=== PATIENT | female | born 1930 | race Caucasian/White ===

== ENCOUNTER 2018-09-24 17:00 | Inpatient (IN) ==
[2018-09-24] MEDS ORDERED: SODIUM CHLORIDE 0.9% 500 ML IV SCH (18:00)
[2018-09-24 18:07] LABS: Basophils # (auto) 0.08 K/uL (0-0.2); Basophils % (auto) 1.2 %; Eosinophils # (auto) 0.31 K/uL (0-0.5); Eosinophils % (auto) 4.6 %; Hematocrit (blood only) 45.3 % (37-47); Hemoglobin 14.7 g/dL (12.0-16.0); Immature Granulocytes # (auto) 0.01 K/uL (0.00-0.02); Immature Granulocytes % (auto) 0.1 %; Lymphocytes # (auto) 0.96 K/uL (1.2-3.4); Lymphocytes % (auto) 14.3 %; Mean Corpuscular Hgb Conc 32.5 g/dL (32-36); Mean Corpuscular Volume 95.6 fL (80-100); Monocytes # (auto) 0.55 K/uL (0.11-0.59); Monocytes % (auto) 8.2 %; Neutrophils % (auto) 71.6 %; Platelet Count 151 K/uL (130-400); RDW Coefficient of Variation 14.6 % (11.5-14.5); RDW Standard Deviation 51.3 fL (36.4-46.3); Red Blood Count 4.74 M/uL (4.2-5.4); White Blood Count 6.71 K/uL (4.8-10.8)
--- NOTE | 2018-09-24 18:12 | CT Scan Report ---
CT head/brain wo con CLINICAL HISTORY: 87 years-old Female presenting with weakness. TECHNIQUE: Multidetector CT imaging of the head was performed without the use of intravenous contrast . IV contrast: None. One or more dose lowering techniques were used consistent with the principles of ALARA (as low as reasonably achievable), including automatic exposure control, mA or kV adjustment t o individual patient size, and/or use of iterative reconstruction. COMPARISON: 02/24/2016. CT DOSE (mGy.cm): The estimated cumulative dose is 537.48 mGy.cm. FINDINGS: Electric Welder Helper topogram: The patient is edentulous. Ventricles and sulci normal in size. No hemorrhage. Periventricular and subcortical white matter hypo attenuation, nonspecific but likely indicative of chronic small vessel ischemic change. No acute terr itorial infarct. No mass effect or midline shift. No extra-axial fluid collection. Paranasal sinuses and mastoid air cells clear. Calvarium intact. Bilateral [place] lenses are absent. IMPRESSION: 1. Chronic small vessel ischemic change. No acute intracranial abnormality. Electronically signed by: Sanjiv Floyd M.D. 09/24/2018 6:11 PM
[2018-09-24 18:25] LABS: INR 1.8 (0.9-1.1); Partial Thromboplastin Ratio 1.1; Partial Thromboplastin Time 29.6 Seconds (21.0-31.0); Prothrombin Time 17.4 Seconds (9.0-12.0)
--- NOTE | 2018-09-24 18:34 | Emergency Department Note ---
Entered by Tita Zavaleta acting as a scribe for History of Present Illness General Chief complaint: Confusion Stated complaint: AMS Time Seen by Provider: 09/24/18 17:39 Source: family Mode of arrival: EMS History of Present Illness Provider complaint: altered mental status Onset (ago): hour(s) 8 Location: head Pain Consistency: + other (persistent) Quality: + other (altered mental status) Associated symptoms: + other (Associated symptoms: sleepiness, increased swelling of legs. Denies: vomiting, diarrea, cough) The patient is an 87 year old female who presents to the Emergency Room with complaints of persistent altered mental status beginning 8 hours ago. Her daughter reports the patient was at her baseline yesterday. The daughter states the patient woke up and ate breakfast as usual, and then sat in a chair and fell asleep for most of the day, which is unusal for her. She notes the patient was difficult to rouse. The daughter reports the patient has chronic pain and generally takes medication 4x a day, but today said she had no pain and did not take her usual medications. She denies vomiting, diarrhea, or cough. The daughter notes the patient has increased swelling of both legs over the past few days. She saw her PCP yesterday who believed this swelling was due to the patient keeping her legs on the ground recently in order to be close to a radiator. The daughter notes the patient said she was given iced tea by the daughter and other family members today, which did not happen. 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 She has a history of multiple mini-strokes and many UTIs. Home Medications Home Medications Medication Instructions Recorded Confirmed Type acetaminophen [Tylenol 8 Hour] 650 mg PO Q8H PRN 09/24/18 09/24/18 History atorvastatin 20 mg PO DAILY 09/24/18 09/24/18 History calcium carbonate-vitamin D3 1 tab PO DAILY 09/24/18 09/24/18 History [Calcium 500 + D] cyclosporine [Restasis] 1 drp OPB Q12H 09/24/18 09/24/18 History docusate sodium 100 mg PO DAILY 09/24/18 09/24/18 History furosemide 40 mg PO DAILY 09/24/18 09/24/18 History hydrocodone-acetaminophen 1 tab PO Q4H PRN 09/24/18 09/24/18 History lisinopril 20 mg PO DAILY 09/24/18 09/24/18 History multivitamin 1 tab PO DAILY 09/24/18 09/24/18 History nitrofurantoin macrocrystal 50 mg PO HS 09/24/18 09/24/18 History [Macrodantin] omeprazole 20 mg PO BID 09/24/18 09/24/18 History polyethylene glycol 3350 [Miralax] 17 g PO DAILY 09/24/18 09/24/18 History vit C,K-Rw-ttwem-lutein-zeaxan 1 tab PO DAILY 09/24/18 09/24/18 History [PreserVision AREDS-2] warfarin 0 mg PO UD 09/24/18 09/24/18 History Allergies Allergy/AdvReac Type Severity Reaction Status Date / Time iodine Allergy Unknown BETADINE Verified 09/24/18 18:17 Sulfa (Sulfonamide Allergy Unknown "SULFA Verified 09/24/18 18:17 Antibiotics) DRUGS" Past Med/Surg History Medical History DVT (deep venous thrombosis) (Chronic) Pulmonary embolism (Chronic) Hypertension (Chronic) Hyperlipidemia (Chronic) Osteoarthritis (Chronic) Spinal compression fracture (Chronic) Dementia (Chronic) Surgical History History of hysterectomy (Resolved) History of bilateral hip replacements (Resolved) History of appendectomy (Chronic) Hx of tonsillectomy (Chronic) Social History Feels Safe at Home: Yes Smoking Status: Never smoker Review of Systems See HPI for pertinent positives & negatives. and A total of 10 systems reviewed and were otherwise negative Physical Exam Vital Signs Vital Signs - 24 hr 09/24/18 17:12 09/24/18 18:45 Temperature 36.9 C Temperature Source Oral Sepsis Recent Fever Within 48 Hours No Sepsis New/Unexplained Change in Mental Status No Sepsis Action Taken by Nursing No Action Required Pulse Rate 83 Pulse Rate [Finger] 83 74 Respiratory Rate 21 24 Blood Pressure 184/79 H Blood Pressure [Right Arm] 184/79 H 177/95 H Blood Pressure Mean 114 Blood Pressure Mean [Right Arm] 114 122 Pulse Oximetry 94 94 Oxygen Delivery Method Room Air Room Air GENERAL: Patient is in no acute distress. HEENT: No acute trauma, normocephalic atraumatic, mucous membranes moist, no nasal congestion, no scleral icterus. NECK: No stridor, no adenopathy, no meningismus, trachea is midline. LUNGS: Clear to auscultation bilaterally, no wheeze, no rhonchi, breath sounds equal. HEART: 2/6 systolic murmur, regular rate and rhythm. ABDOMEN: Soft, nontender, bowel sounds positive, no hernias, no peritonitis. EXTREMITIES: No cyanosis, full range of motion of all the joints without pain or difficulty, no signs for acute trauma. Mild bilateral pedal edema. NEUROLOGIC: Oriented x 3, no acute motor or sensory deficits, no focal weakness. No speech slur or facial droop. No cerebellar dysfunction or pronator drift. SKIN: No rash, no jaundice, no diaphoresis. Course 1739: Past medical records reviewed. The patient was evaluated in room A2, and a complete history and physical examination were performed. 1935: Upon reevaluation, the patient is resting. I discussed test results with the patient and her family. They verbalized agreement with the treatment plan. The patient will be admitted for further evaluation. 193: I reviewed the patient's case with Alden [facility]. He will evaluate the patient for further management. Consultations Consultation #1: I reviewed the patient's case with Alden Lundberg [facility]. He will evaluate the patient for further management. Time: 19:38 Administered Medications Discontinued Medications Sodium Chloride (Nss) 500 mls @ 999 mls/hr IV .Q31M NEIDA Stop: 09/24/18 18:30 Last Infusion: 09/24/18 19:26 Dose: 0 mls/hr Admin: 09/24/18 18:45 Dose: 999 mls/hr Medical Decision Making Differential Diagnosis Etiologies considered include dehydration, UTI, intracranial bleeding, stroke, electrolyte imbalance, anemia, pneumonia. Medical Records Attestation: I reviewed the patient's medical records. Home Medications Current Medication List: was personally reviewed by me Laboratory Data Attestation: I reviewed the patient's lab results. Result diagrams: 09/24/18 18:00 09/24/18 18:50 Lab Results 09/24/18 09/24/18 09/24/18 Range/Units 18:00 18:00 18:00 WBC 6.71 (4.8-10.8) K/uL RBC 4.74 (4.2-5.4) M/uL Hgb 14.7 (12.0-16.0) g/dL Hct 45.3 (37-47) % MCV 95.6 (80-100) fL MCH 31.0 (25-34) pg MCHC 32.5 (32-36) g/dL RDW Std Deviation 51.3 H (36.4-46.3) fL RDW Coeff of Sarah 14.6 H (11.5-14.5) % Plt Count 151 (130-400) K/uL MPV 9.0 (7.4-10.4) fL Immature Gran % (Auto) 0.1 % Neut % (Auto) 71.6 % Lymph % (Auto) 14.3 % [place] % (Auto) 8.2 % Eos % (Auto) 4.6 % Baso % (Auto) 1.2 % Immature Gran # (Auto) 0.01 (0.00-0.02) K/uL Neut # (Auto) 4.80 (1.4-6.5) K/uL Lymph # (Auto) 0.96 L (1.2-3.4) K/uL [place] # (Auto) 0.55 (0.11-0.59) K/uL Eos # (Auto) 0.31 (0-0.5) K/uL Baso # (Auto) 0.08 (0-0.2) K/uL PT 17.4 H (9.0-12.0) Seconds INR 1.8 H (0.9-1.1) APTT 29.6 (21.0-31.0) Seconds PTT Ratio 1.1 Sodium 140 (136-145) mmol/L Potassium (3.5-5.1) mmol/L Chloride 104 (98-107) mmol/L Carbon Dioxide 33 H (21-32) mmol/L Anion Gap 4.0 (3-11) BUN 16 (7-18) mg/dl Creatinine 0.87 (0.6-1.2) mg/dl Est Cr Clr Drug Dosing 47.0 ml/min Est GFR ( Amer) 68.9 Est GFR (Non-Af Amer) 59.5 BUN/Creatinine Ratio 18.5 (10-20) Glucose 134 H (70-99) mg/dl Calcium 8.6 (8.5-10.1) mg/dl Magnesium (1.8-2.4) mg/dl Total Bilirubin 0.5 (0.2-1) mg/dl AST (15-37) U/L ALT 28 (12-78) U/L Alkaline Phosphatase 115 (45-117) U/L Troponin I 0.069 H* (0-0.045) ng/ml Total Protein 7.4 (6.4-8.2) gm/dl Albumin 3.3 L (3.4-5.0) gm/dl Globulin 4.1 H (2.5-4.0) gm/dl Albumin/Globulin Ratio 0.8 L (0.9-2) TSH 1.140 (0.300-4.500) uIu/ml Urine Color Urine Appearance (Clear) Urine pH (4.5-7.5) Ur Specific [place] (1.000-1.030) Urine Protein (Negative) Urine Glucose (UA) (Negative) Urine Ketones (Negative) Urine Blood (Negative) Urine Nitrite (Negative) Urine Bilirubin (Negative) Urine Urobilinogen (Negative) Ur Leukocyte Esterase (Negative) 09/24/18 09/24/18 Range/Units 18:50 19:08 WBC (4.8-10.8) K/uL RBC (4.2-5.4) M/uL Hgb (12.0-16.0) g/dL Hct (37-47) % MCV (80-100) fL MCH (25-34) pg MCHC (32-36) g/dL RDW Std Deviation (36.4-46.3) fL RDW Coeff of Sarah (11.5-14.5) % Plt Count (130-400) K/uL MPV (7.4-10.4) fL Immature Gran % (Auto) % Neut % (Auto) % Lymph % (Auto) % [place] % (Auto) % Eos % (Auto) % Baso % (Auto) % Immature Gran # (Auto) (0.00-0.02) K/uL Neut # (Auto) (1.4-6.5) K/uL Lymph # (Auto) (1.2-3.4) K/uL [place] # (Auto) (0.11-0.59) K/uL Eos # (Auto) (0-0.5) K/uL Baso # (Auto) (0-0.2) K/uL PT (9.0-12.0) Seconds INR (0.9-1.1) APTT (21.0-31.0) Seconds PTT Ratio Sodium (136-145) mmol/L Potassium 4.2 (3.5-5.1) mmol/L Chloride (98-107) mmol/L Carbon Dioxide (21-32) mmol/L Anion Gap (3-11) BUN (7-18) mg/dl Creatinine (0.6-1.2) mg/dl Est Cr Clr Drug Dosing ml/min Est GFR ( Amer) Est GFR (Non-Af Amer) BUN/Creatinine Ratio (10-20) Glucose (70-99) mg/dl Calcium (8.5-10.1) mg/dl Magnesium 2.3 (1.8-2.4) mg/dl Total Bilirubin (0.2-1) mg/dl AST 18 (15-37) U/L ALT (12-78) U/L Alkaline Phosphatase (45-117) U/L Troponin I (0-0.045) ng/ml Total Protein (6.4-8.2) gm/dl Albumin (3.4-5.0) gm/dl Globulin (2.5-4.0) gm/dl Albumin/Globulin Ratio (0.9-2) TSH (0.300-4.500) uIu/ml Urine Color Yellow Urine Appearance Clear (Clear) Urine pH 6.0 (4.5-7.5) Ur Specific [place] 1.015 (1.000-1.030) Urine Protein Negative (Negative) Urine Glucose (UA) Negative (Negative) Urine Ketones Negative (Negative) Urine Blood Negative (Negative) Urine Nitrite Negative (Negative) Urine Bilirubin Negative (Negative) Urine Urobilinogen Negative (Negative) Ur Leukocyte Esterase Negative (Negative) Imaging Data Radiologist's Impression: Radiology results as stated below per my review and the radiologist's interpretation: XR chest 1V portable CLINICAL HISTORY: 87 years-old Female presenting with weakness. TECHNIQUE: Portable upright AP view of the chest was obtained. COMPARISON: 02/24/2016. FINDINGS: Atherosclerosis of the aortic arch. Cardiac silhouette enlarged. Mitral annular calcification. Pulmonary vascular prominence. Bronchial wall thickening suggested. Coarsened lung markings. Central predominant right upper and left lower at the densities suggested. No large effusion or pneumothorax. Suspected exaggerated thoracic kyphosis. Degenerative changes of the shoulders. Partially visualized IVC filter. IMPRESSION: 1. Cardiomegaly with volume overload/congestive change. 2. Patchy central infiltrates in the right upper and left lower lungs may represent developing pulmonary edema or an infectious or inflammatory infiltrate. Electronically signed by: Sanjiv Floyd M.D. 09/24/2018 6:[address] head/brain wo con CLINICAL HISTORY: 87 years-old Female presenting with weakness. TECHNIQUE: Multidetector CT imaging of the head was performed without the use of intravenous contrast. IV contrast: None. One or more dose lowering techniques were used consistent with the principles of ALARA (as low as reasonably achievable), including automatic exposure control, mA or kV adjustment to individual patient size, and/or use of iterative reconstruction. COMPARISON: 02/24/2016. CT DOSE (mGy.cm): The estimated cumulative dose is 537.48 mGy.cm. FINDINGS: Electrolog Operator topogram: The patient is edentulous. Ventricles and sulci normal in size. No hemorrhage. Periventricular and subcortical white matter hypoattenuation, nonspecific but likely indicative of chronic small vessel ischemic change. No acute territorial infarct. No mass effect or midline shift. No extra-axial fluid collection. Paranasal sinuses and mastoid air cells clear. Calvarium intact. Bilateral [place] lenses are absent. IMPRESSION: 1. Chronic small vessel ischemic change. No acute intracranial abnormality. Electronically signed by: Sanjiv Floyd M.D. 09/24/2018 6:11 PM ECG Data Attestation: I personally reviewed and interpreted this ECG as follows: Indication: altered mental status Rate (beats per minute): 77 Rhythm: normal sinus Findings: no PVC and no ST elevation Blood Pressure Blood Pressure Findings: Elevated blood pressure Blood Pressure Disposition: Referred to patients primary care provider MDM Narrative There is no leukocytosis or worrisome anemia. No significant electrolyte abnormality, kidney failure or hepatitis. The patient does appear to be in a euthyroid state. EKG shows a sinus rhythm, no acute ischemia. Cardiac enzyme testing x1 does show a troponin elevation, this is concerning for cardiac injury or strain. INR is elevated at 1.8, this is consistent with her Coumadin use. Urinalysis does not show infection. Chest film does shows some parenchymal changes, the radiologist questioned pneumonia, atelectasis or CHF. I think the chest film findings are likely consistent with atelectasis, chronic parenchymal change and a poor inspiration as the patient has not had cough or fever. She did not have findings on exam to suggest CHF. She was not hypoxic. Brain CT shows no acute bleed or mass-effect. On exam, there were no focal neurologic deficits. She did not have a speech slur or facial droop. The patient received IV saline. Given the change in mental status, given the troponin elevation, I do think a hospital stay is warranted. The cause for her entire presentation is not yet completely clear. Further workup is required. Of note, I did not give the patient any oral aspirin as she is already anticoagulated. I spoke to the family and patient, I talked with the case management social worker. The on-call hospitalist was consulted. Impression & Plan Change in mental status, Weakness, Elevated troponin Discharge Plan Visit Data Chief Complaint: Confusion Stated Complaint: AMS ED Provider: Yadiel Cota Discharge Problem: Change in mental status, Weakness, Elevated troponin Patient Disposition: Being Evaluated by Hospitalist Forms Stand Alone Forms: My [facility] Prescriptions Prescriptions: No Action multivitamin Tablet 1 tab PO DAILY RF: 0 furosemide 40 mg Tablet 40 mg PO DAILY RF: 0 nitrofurantoin macrocrystal [Macrodantin] 50 mg Capsule 50 mg PO HS RF: 0 atorvastatin 20 mg Tablet 20 mg PO DAILY RF: 0 polyethylene glycol 3350 [Miralax] 17 gram Powder In Packet 17 g PO DAILY RF: 0 hydrocodone-acetaminophen 5-325 mg Tablet 1 tab PO Q4H PRN (Reason: Pain) RF: 0 lisinopril 20 mg Tablet 20 mg PO DAILY RF: 0 acetaminophen [Tylenol 8 Hour] 650 mg Tablet Extended Release 650 mg PO Q8H PRN (Reason: Fever) RF: 0 warfarin 2 mg Tablet PO UD RF: 0 docusate sodium 100 mg Capsule 100 mg PO DAILY RF: 0 omeprazole 20 mg Capsule,Delayed Release(Dr/Ec) 20 mg PO BID RF: 0 cyclosporine [Restasis] 0.05 % [place] 1 drp OPB Q12H RF: 0 calcium carbonate-vitamin D3 [Calcium 500 + D] 500 mg(1,250mg) -200 unit Tablet 1 tab PO DAILY RF: 0 vit C,K-Re-rdigk-lutein-zeaxan [PreserVision AREDS-2] 742-747-63-1 mg-unit-mg- mg Capsule 1 tab PO DAILY RF: 0 Referrals Referrals: Amadeo Walters DO [Primary Care Provider] - The scribe's documentation has been prepared under my direction and personally reviewed by me in its entirety. I confirm that the note above accurately reflects all work, treatment, procedures, and medical decision making performed by me.
--- NOTE | 2018-09-24 18:38 | XRay Report ---
XR chest 1V portable CLINICAL HISTORY: 87 years-old Female presenting with weakness. TECHNIQUE: Portable upright AP view of the chest was obtained. COMPARISON: 02/24/2016. FINDINGS: Atherosclerosis of the aortic arch. Cardiac silhouette enlarged. Mitral annular calcification. Pulmon [place] vascular prominence. Bronchial wall thickening suggested. Coarsened lung markings. Central predom inant right upper and left lower at the densities suggested. No large effusion or pneumothorax. Suspe cted exaggerated thoracic kyphosis. Degenerative changes of the shoulders. Partially visualized IVC f ilter. IMPRESSION: 1. Cardiomegaly with volume overload/congestive change. 2. Patchy central infiltrates in the right upper and left lower lungs may represent developing pulmo nary edema or an infectious or inflammatory infiltrate. Electronically signed by: Sanjiv Floyd M.D. 09/24/2018 6:37 PM
[2018-09-24 18:46] LABS: Albumin Level 3.3 gm/dl (3.4-5.0); BUN Creatinine Ratio 18.5 (10-20); Calcium 8.6 mg/dl (8.5-10.1); Est GFR (African American) 68.9; Est GFR (Non-African American) 59.5
[2018-09-24 18:50] LABS: Albumin Globulin Ratio 0.8 (0.9-2); Bilirubin,Total 0.5 mg/dl (0.2-1); Globulin 4.1 gm/dl (2.5-4.0); Total Protein 7.4 gm/dl (6.4-8.2); Troponin I 0.069 ng/ml (0-0.045)
[2018-09-24 19:11] LABS: Potassium 4.2 mmol/L (3.5-5.1)
[2018-09-24 19:16] LABS: Magnesium 2.3 mg/dl (1.8-2.4)
[2018-09-24 19:26] LABS: Appearance Urine Clear (Clear); Bilirubin Urine Negative (Negative); Blood Urine Negative (Negative); Color Urine Yellow; Glucose Urine UA Negative (Negative); Ketones Urine Negative (Negative); Leukocyte Esterase Urine Negative (Negative); Nitrite Urine Negative (Negative); Protein Urine Negative (Negative); Specific Gravity Urine 1.015 (1.000-1.030); Urobilinogen Urine Negative (Negative)
[2018-09-24] MEDS ORDERED: HYDROCODONE/ACETAMOPHEN 5/325MG TAB PO STA (20:00)
[2018-09-24 20:26] LABS: Amphetamines+Metham, Urine Neg (Neg); Barbiturates, Urine Neg (Neg); Benzodiazepine, Urine Neg (Neg); Cocaine, Urine Neg (Neg); MDMA (Ecstacy), Urine Neg (Neg); Methadone, Urine Neg (Neg); Opiate, Urine Pos (Neg); Phencyclidine, Urine Neg (Neg)
[2018-09-24 21:00] LABS: Base Excess VBG 4.4 mEq/L; Oxygen Saturation VBG 79.3 %; pH VBG 7.42 (7.36-7.41)
[2018-09-24 21:30] LABS: Troponin I 0.082 ng/ml (0-0.045)
[2018-09-24] MEDS ORDERED: FUROSEMIDE 40 MG/4 ML VIAL IV STA (21:33)
--- NOTE | 2018-09-24 21:34 | History & Physical Report ---
Date of Service September 24, 2018 Assessment & Plan (1) Change in mental status: This is an 87-year-old female with a PMH of HTN, HLD, diastolic heart failure, dementia, recurrent UTI and history of DVT on Coumadin who presents from home with increased drowsiness starting this morning and was found to have decompensated diastolic heart failure. -Became noticably more lethargic this morning, family denies tayla confusion -CT head with chronic small vessel ischemic change. No acute intracranial abnormality -Lethargy likely due to acute decompensated diastolic HF -Afebrile, no leukocytosis, UA without evidence of infection -No new medications (has been taking [place] and gabapentin without issue) -Continue to monitor. Consider further neurological imaging if AMS persists -See attending addendum for further detail (2) Acute on chronic diastolic (congestive) heart failure: BLE edema, weight gain over past few weeks -Echo from Mar 2018 with EF: 61%, concentric LVH, no wall motion abnormality of LV, grade 1 diastolic dysfunction, mild AV stenosis -CXR with cardiomegaly with volume overload/congestive change. Patchy central infiltrates in the right upper and left lower lungs may represent developing pulmonary edema or an infectious or inflammatory infiltrate. -Given 40mg IV Lasix in ED -Low sodium diet, daily weights, strict I&Os (3) Elevated troponin: Troponin elevated to 0.069 initially. Repeat pending -No chest pain or h/o OH -EKG without acute ischemic changes -Likely due to demand ischemia in setting of decompensated heart failure -Continue trending troponin, monitor on telemetry (4) GERD (gastroesophageal reflux disease): Continue PPI (5) Recurrent UTI: No evidence of infection -Continue home nitrofurantoin (6) DVT (deep venous thrombosis): H/o IVC filter placement -Continue home dose coumadin of 2mg daily -INR slightly subtherapeutic at 1.8. Continue to monitor (7) Hypertension: Elevated with SBP in 180s -Continue home lisinopril, IV Lasix -Add additional agents if indicated (8) Hyperlipidemia: Continue statin DVT Ppx: Continue coumadin Code status: DNR per discussion with patient, family PCP: Romeo Dispo: Admitted to telemetry. Patient seen in collaboration with Dr. Ibarra. Please see addendum. History of Present Illness Chief Complaint: lethargy Primary Care Provider: Amadeo Walters DO This is an 87-year-old female with a PMH of HTN, HLD, diastolic heart failure, dementia, recurrent UTI and history of DVT on Coumadin who presents from home with increased drowsiness starting this morning. Patient lives with family members and was noted to be at baseline yesterday. From at 10 AM onward, patient seemed more fatigued than usual and daughter was having difficulty waking her up. Patient fell asleep during lunch, and would open her eyes when prompted but seemed to remain lethargic. Was brought into ED for further evaluation. Patient was seen in clinic yesterday for increased lower extremity swelling. Was told that she had gained 5 pounds since previous appointment. Swelling was attributed to patient keeping legs in dependent position over the past few days to be close to the radiator. Family feels that patient is more fatigued than usual but not confused. Denies fever, chills, lightheadedness, chest pain, palpitations, shortness of breath, nausea, vomiting, abdominal pain, dysuria, constipation, diarrhea or weakness. Patient takes nitrofurantoin for recurrent UTIs and is on Coumadin for history of DVTs. Takes [place] and gabapentin for chronic back pain and did not take dose today at 1400, per daughter. Has history of multiple mini strokes. Allergies Allergy/AdvReac Type Severity Reaction Status Date / Time iodine Allergy Unknown BETADINE Verified 09/24/18 18:17 Sulfa (Sulfonamide Allergy Unknown "SULFA Verified 09/24/18 18:17 Antibiotics) DRUGS" Home Medications Home Medications Medication Instructions Recorded Confirmed Type acetaminophen [Tylenol 8 Hour] 650 mg PO Q8H PRN 09/24/18 09/24/18 History atorvastatin 20 mg PO HS 09/24/18 09/24/18 History calcium carbonate-vitamin D3 1 tab PO DAILY 09/24/18 09/24/18 History [Calcium 500 + D] cyclosporine [Restasis] 1 drp OPB Q12H 09/24/18 09/24/18 History docusate sodium 100 mg PO DAILY 09/24/18 09/24/18 History furosemide 40 mg PO DAILY 09/24/18 09/24/18 History gabapentin 400 mg PO TID 09/24/18 09/24/18 History hydrocodone-acetaminophen 1 tab PO Q4H PRN 09/24/18 09/24/18 History lisinopril 20 mg PO DAILY 09/24/18 09/24/18 History multivitamin 1 tab PO DAILY 09/24/18 09/24/18 History nitrofurantoin macrocrystal 50 mg PO DAILY 09/24/18 09/24/18 History [Macrodantin] omeprazole 20 mg PO BID 09/24/18 09/24/18 History polyethylene glycol 3350 [Miralax] 17 g PO DAILY 09/24/18 09/24/18 History vit C,O-Mf-zrwxv-lutein-zeaxan 1 tab PO DAILY 09/24/18 09/24/18 History [PreserVision AREDS-2] warfarin 2 mg PO DAILY@1600 09/24/18 09/24/18 History Past Med/Surg History Medical History Chronic back pain (Chronic) Recurrent UTI (Chronic) GERD (gastroesophageal reflux disease) (Chronic) Chronic diastolic (congestive) heart failure (Chronic) DVT (deep venous thrombosis) (Resolved) Pulmonary embolism (Resolved) Hypertension (Chronic) Hyperlipidemia (Chronic) Osteoarthritis (Chronic) Spinal compression fracture (Chronic) Dementia (Chronic) Surgical History History of hysterectomy (Resolved) History of bilateral hip replacements (Resolved) History of appendectomy (Chronic) Hx of tonsillectomy (Chronic) Social History Current Living Situation: Family Current Living Situation Comment: LIVES WITH DAUGHTER current occupational status: retired Other Information That Helps Us Care for You: No Feels Safe at Home: Yes Safety Concerns: Feels Safe At This Time Smoking Status: Never smoker Hx Alcohol Use: No Hx Substance Use: No Beliefs That Will Affect Care: None Preferred Language: [place]ib[place]ian Communication Ability: Effective Undercoat Sprayer Required: No Review of Systems All systems reviewed & are unremarkable except as noted in HPI & below Physical Exam 2 Vital Signs (Past 24 Hours): Last Vital Signs Temp 36.9 C 09/24/18 17:12 Pulse 75 09/24/18 20:28 Resp 20 09/24/18 20:28 BP 180/74 H 09/24/18 20:28 Pulse Ox 96 09/24/18 20:28 Physical Exam: General Appearance: WD/WN, no apparent distress, pleasant and cooperative Head: normocephalic, atraumatic Eyes: normal inspection, PERRL, EOMI ENT: hearing grossly normal, pharynx normal (moist mucous membranes) Neck: supple, no JVD, no adenopathy Respiratory/Chest: Bibasilar crackles. No wheezes or rhonci. No respiratory distress or accessory muscle use Cardiovascular: regular rate, rhythm, systolic murmur, normal peripheral pulses , 1-2+ BLE edema Abdomen/GI: normal bowel sounds, soft, non-tender to palpation Extremities/Musculoskelatal: normal inspection, no calf tenderness, normal capillary refill, no pedal edema Neurologic/Psych: alert, normal mood/affect, oriented x 3 Skin: normal color, warm/dry Results & Data Laboratory Results Short CBC 09/24/18 09/24/18 Range/Units 18:00 18:00 WBC 6.71 (4.8-10.8) K/uL Hgb 14.7 (12.0-16.0) g/dL Hct 45.3 (37-47) % Plt Count 151 (130-400) K/uL Troponin I 0.069 H* (0-0.045) ng/ml BMP 09/24/18 09/24/18 18:00 18:50 Sodium 140 Potassium 4.2 Chloride 104 Carbon Dioxide 33 H BUN 16 Creatinine 0.87 Glucose 134 H Calcium 8.6 Cardiac Enzymes 09/24/18 09/24/18 Range/Units 18:00 20:51 Troponin I 0.069 H* 0.082 H* (0-0.045) ng/ml Liver Function 09/24/18 09/24/18 Range/Units 18:00 18:50 Total Bilirubin 0.5 (0.2-1) mg/dl AST 18 (15-37) U/L ALT 28 (12-78) U/L Alkaline Phosphatase 115 (45-117) U/L Albumin 3.3 L (3.4-5.0) gm/dl Urine 09/24/18 Range/Units 19:08 Urine Color Yellow Urine Appearance Clear (Clear) Urine pH 6.0 (4.5-7.5) Ur Specific [place] 1.015 (1.000-1.030) Urine Protein Negative (Negative) Urine Glucose (UA) Negative (Negative) Diagnostic Findings Head CT: IMPRESSION: 1. Chronic small vessel ischemic change. No acute intracranial abnormality. CXR: IMPRESSION: 1. Cardiomegaly with volume overload/congestive change. 2. Patchy central infiltrates in the right upper and left lower lungs may represent developing pulmonary edema or an infectious or inflammatory infiltrate. ECG Rhythm: sinus rhythm Findings: + PAC Code Status & VTE Plan Code Status DNR Supervising Physician Co-Signing Physician Notes IM ATTENDING : Patient seen and examined. History obtained from patient and records. Preceding documentation by Ms. Cheri Conrad PA-C reviewed. FINAL ASSESSMENT AND PLAN as follows : Transient encephalopathy History of vascular dementia as per records Multifactorial : Vicodin/Neurontin medications for chronic LE pain Decompensated heart failure Hypertensive urgency Recurrent PE/DVT on Coumadin status post IVC filter placement INR slightly subtherapeutic LE swelling secondary to CHF Hyperglycemia rule out DM PCU Diuretic Rx Strict I/Os, daily weights, CHF education Initiate Initiate beta-ab TTE, Cardiology consult RE decompensated heart failure Patient/daughter cautioned about taking Gabapentin and Vicodin together. Counseled to take medications at different times and to hold intake for sedation and confusion. Check hemoglobin A1c PT OT eval DVT prophylaxis. IV heparin-Coumadin bridge tx DNR Patient's daughter requesting updates from providers. Mrs. Elida Hess, contact #[phone]. _ (1) Change in mental status Altered mental status type: unspecified Coma depth: Coma timing: Qualified Code(s): R41.82 - Altered mental status, unspecified
[2018-09-24] MEDS: METOPROLOL TARTRATE 25 MG TAB PO SCH (21:51)
[2018-09-24] MEDS ORDERED: WARFARIN SOD 5 MG TAB PO ONE (23:05)
[2018-09-24] MEDS ORDERED: Heparin IV Standard *NO* Bolus STA (23:05)
[2018-09-24] MEDS ORDERED: HYDROCODONE/ACETAMOPHEN 5/325MG TAB PO PRN (23:05)
[2018-09-24] MEDS ORDERED: FUROSEMIDE 40 MG in SYRINGE 0 ML IV SCH (23:45)
[2018-09-24] MEDS: HEPARIN STANDARD DEXTROSE 25,000 UNITS/500 ML IV SCH (23:47)
[2018-09-25] MEDS: RESTASIS~ORDER AWAITING ACTION SCH ×3 (00:05→21:42)
[2018-09-25 06:22] LABS: Estimated Average Glucose 108 mg/dl; Hemoglobin A1C 5.4 % (4.5-5.6)
[2018-09-25 06:34] LABS: Basophils # (auto) 0.04 K/uL (0-0.2); Basophils % (auto) 0.5 %; Eosinophils # (auto) 0.33 K/uL (0-0.5); Eosinophils % (auto) 4.1 %; Hematocrit (blood only) 45.3 % (37-47); Hemoglobin 14.5 g/dL (12.0-16.0); Immature Granulocytes # (auto) 0.01 K/uL (0.00-0.02); Immature Granulocytes % (auto) 0.1 %; Lymphocytes # (auto) 1.24 K/uL (1.2-3.4); Lymphocytes % (auto) 15.4 %; Mean Corpuscular Volume 94.2 fL (80-100); Mean Platelet Volume 9.6 fL (7.4-10.4); Monocytes # (auto) 0.63 K/uL (0.11-0.59); Monocytes % (auto) 7.8 %; Neutrophils % (auto) 72.1 %; Platelet Count 132 K/uL (130-400); RDW Coefficient of Variation 14.4 % (11.5-14.5); RDW Standard Deviation 49.3 fL (36.4-46.3); Red Blood Count 4.81 M/uL (4.2-5.4); White Blood Count 8.05 K/uL (4.8-10.8)
[2018-09-25 07:05] LABS: INR 1.8 (0.9-1.1); Partial Thromboplastin Ratio 2.3; Prothrombin Time 17.2 Seconds (9.0-12.0)
[2018-09-25 07:11] LABS: Partial Thromboplastin Time 59.7 Seconds (21.0-31.0)
[2018-09-25 07:24] LABS: BUN Creatinine Ratio 20.8 (10-20); Calcium 8.5 mg/dl (8.5-10.1); Creatinine Clr Calc Pharmacy 57.3 ml/min; Est GFR (African American) 90.1; Est GFR (Non-African American) 77.7; Potassium 3.5 mmol/L (3.5-5.1); Troponin I 0.072 ng/ml (0-0.045)
[2018-09-25] MEDS ORDERED: FUROSEMIDE 40 MG in SYRINGE 0 ML IV SCH (08:00)
[2018-09-25] MEDS ORDERED: FUROSEMIDE 40 MG/4 ML VIAL IV ONE (08:00)
[2018-09-25] MEDS: LISINOPRIL 20 MG TAB PO SCH ×2 (08:19→11:10)
[2018-09-25] MEDS: PANTOprazole 40 MG TAB PO SCH ×2 (08:19→21:41)
[2018-09-25] MEDS: DOCUSATE SODIUM 100 MG CAP PO SCH (08:19)
[2018-09-25] MEDS: GABAPENTIN 400 MG CAP PO SCH ×2 (08:19→19:14)
[2018-09-25] MEDS: MULTIVITAMIN TAB PO SCH (08:19)
[2018-09-25] MEDS: METOPROLOL TARTRATE 25 MG TAB PO SCH ×2 (10:00→21:41)
[2018-09-25] MEDS ORDERED: LISINOPRIL 20 MG TAB PO STA (10:06)
--- NOTE | 2018-09-25 10:38 | Consultation Report ---
DATE OF CONSULTATION: 09/25/2018 INPATIENT CARDIOLOGY CONSULTATION CONSULTATION REQUESTED BY: Migue Conrad PA-C. REASON FOR CONSULTATION: Acute decompensated diastolic heart failure. HISTORY OF PRESENT ILLNESS: Mrs. Block is a very pleasant yet significantly demented 87-year-old woman who was brought into [facility] Emergency Department on 09/24/2018 by her family members after reporting increasing somnolence and decreased responsiveness. The patient recently followed with her primary care physician after noticing lower extremity edema, increased over the last week or so. It was felt by her primary care that the lower extremity edema was dependent in nature given the fact the patient has recently been sitting in a chair next to a radiator to keep warm. Leg elevation was recommended along with increasing her dose of Lasix; however, on the morning of 09/24/2018, the patient was more somnolent than normal, slept throughout the day and just not seem herself, so her family brought her into the Emergency Department. In the Emergency Department, it was felt that the patient was volume overloaded and that this might have been contributing to her mental status change, so she was started on diuretics and admitted to telemetry. Currently, the patient is without complaint and she specifically denies any chest pain, shortness of breath, palpitations, lightheadedness, dizziness, or syncope. Unfortunately, she is confused and I am not quite sure if this is far from her baseline, but she does not remember the events leading up to hospitalization, she does not know what hospital she is in and the majority of the history was obtained through review of medical records. PAST SURGICAL HISTORY: 1. Total abdominal hysterectomy. 2. Right hip repair. 3. Wrist fracture repair. 4. Multiple eye injections. 5. Colonoscopy. 6. Breast biopsy. 7. Appendectomy. 8. Tonsil and adenoidectomy. 9. Repeat hip replacements. MEDICAL ILLNESSES: 1. Dementia. 2. History of DVT status post IVC filter placement, on long-term anticoagulation. 3. DNR. 4. Diastolic dysfunction with normal LV systolic function. 5. Hypertension. 6. GERD. 7. Osteoporosis. 8. Recurrent urinary tract infections. FAMILY HISTORY: Noncontributory. SOCIAL HISTORY: Denies any alcohol, tobacco or recreational drug use. She lives at home with her daughter. REVIEW OF SYSTEMS: Unobtainable given the patient's current mental status. ALLERGIES: 1. IODINE. 2. SULFA. MEDICATIONS AN OUTPATIENT: 1. Lasix 40 mg daily, which was recently increased from 20 mg daily. 2. Coumadin as directed by the [facility] clinic. 3. Atorvastatin 20 mg daily. 4. Gabapentin 400 mg 3 times a day. 5. Lisinopril 20 mg daily. 6. Prilosec b.i.d. PHYSICAL EXAMINATION: VITALS: Temperature 36.9, pulse 68, respiratory rate 12, blood pressure 170/76. GENERAL: Awake, alert, oriented to self only. No acute distress. HEENT: Normocephalic, atraumatic. Pupils equal, round, react to light and accommodation. Extraocular muscles intact. Anicteric sclerae. Moist mucous membranes. NECK: No JVD, no bruit. CARDIOVASCULAR: Regular. Positive S4. Normal S1 and S2. No S3, no significant murmurs or rubs. PULMONARY: Diffuse rhonchi with scattered bibasilar crackles. No wheezing. ABDOMEN: Bowel sounds x4, soft. No rebound, guarding, tenderness. No organomegaly. EXTREMITIES: No clubbing, cyanosis or edema. +2 pedal pulses bilaterally. SKIN: Warm and dry. IMAGING DATA: A 2D echocardiogram performed March 2018 was read as normal LV chamber size with mild concentric LVH, normal LV systolic function without regional wall motion abnormality, EF 61%. Grade 1 diastolic dysfunction, severe left atrial enlargement, mild aortic stenosis and regurgitation. Chest x-ray upon presentation was officially read as cardiomegaly with volume overload/congestive change, patchy central infiltrate in the right upper and left lower lungs may represent developing pulmonary edema or infectious or inflammatory infiltrate. IMPRESSION: 1. Acute diastolic dysfunction. 2. Change of mental status. 3. Vascular dementia. 4. History of deep venous thrombosis, on chronic anticoagulation. 5. Hypertension. RECOMMENDATIONS: It was my pleasure to see Mrs. Block in consultation today. From a cardiac standpoint, the patient still examined as little volume overloaded, so we will continue with IV diuresis for now; however, I would recommend looking for another possible cause of her mental status change, and in terms of her long-term care, I have asked palliative care team to discuss goals of care with the patient's family. Otherwise, her potassium will be repleted and will follow her volume status clinically.
--- NOTE | 2018-09-25 10:53 | Palliative Care Consultation ---
Date of Consultation September 25, 2018 Assessment & Plan (1) Goals of care, counseling/discussion: -87 year old female patient with PMH vascular dementia, chronic diastolic heart failure, GERD, chronic back pain, PE/DVT, recurrent UTI, and others, presented with altered mental status. Patient lives in an in-law suite connected to her daughter's home. Patient is normally oriented with only mild cognitive impairment/memory issues, is fully independent in her care. A couple days ago, the patient was at the doctor's with increased LE edema, it was thought to be from sitting up in the chair for the majority of the 48 hours prior. Yesterday, patient then seemed to be difficult to wake up by her daughter , was confused, so they came to ED. CXR showed cardiomegaly with congestive change/volume overload. Troponin mildly elevated, but trending down. Echo from March 2018 showed EF 61%, grade 1 diastolic dysfunction, severe left atrial enlargement, mild aortic stenosis and regurgitation. UA negative for UTI. Opiate screening positive, but patient has been on [place] every four hours around the clock for years due to her chronic back and leg pain. Given patient' s age and comorbidities, palliative care is consulted to discuss goals of care. -Met with patient and her daughter, Rhoda, in room 237. Patient is awake and pleasantly confused. Oriented to person only, did know she was in hospital or why. History above was obtained from record and lottien's daughter. -Patient's daughter states that the patient does have a poor diet that is probably filled with sodium. She eats chips and dip a lot. The CHF has not been a major issue in the recent past, patient has not been hospitalized since 2016. -As far as the dementia, patient's baseline is actually only about 4 on FAST scale, indicating mild dementia. We talked about how this can progress and some things to expect such as increasing need for assistance with ADL. Patient's daughter states that different long-term plans will need to be made for patient as things progress, as she would not be able to provide 24/7 care to patient. -For now, goal is for patient to return to baseline and return home. Daughter states that patient is the type of person who just wants to be at home and live her life the way she wants. -Will follow and see how patient progresses during hospitalization. PT/OT are ordered. -Patient is already a DNR, which daughter confirmed. (2) Change in mental status: Altered mental status type: unspecified Coma depth: Coma timing : Qualified Code(s): R41.82 - Altered mental status, unspecified (3) Acute on chronic diastolic (congestive) heart failure: (4) Chronic back pain: (5) Recurrent UTI: History of Present Illness Reason for Consultation: Goals of care Requesting Physician: Dr. Pena Attending Physician: Britt Barry MD History of Present Illness This 87 year old female patient with PMH vascular dementia, chronic diastolic heart failure, GERD, chronic back pain, PE/DVT, recurrent UTI, and others, presented with altered mental status. Patient lives in an in-law suite connected to her daughter's home. Patient is normally oriented with only mild cognitive impairment/memory issues, is fully independent in her care. A couple days ago, the patient was at the doctor's with increased LE edema, it was thought to be from sitting up in the chair for the majority of the 48 hours prior. Yesterday, patient then seemed to be difficult to wake up by her daughter , was confused, so they came to ED. CXR showed cardiomegaly with congestive change/volume overload. Troponin mildly elevated, but trending down. Echo from March 2018 showed EF 61%, grade 1 diastolic dysfunction, severe left atrial enlargement, mild aortic stenosis and regurgitation. UA negative for UTI. Opiate screening positive, but patient has been on [place] every four hours around the clock for years due to her chronic back and leg pain. Given patient' s age and comorbidities, palliative care is consulted to discuss goals of care. see A&P for details. Thank you kindly for this consult. I will follow as needed. Allergies Allergy/AdvReac Type Severity Reaction Status Date / Time iodine Allergy Unknown BETADINE Verified 09/24/18 18:17 Sulfa (Sulfonamide Allergy Unknown "SULFA Verified 09/24/18 18:17 Antibiotics) DRUGS" Home Medications Home Medications Medication Instructions Recorded Confirmed Type acetaminophen [Tylenol 8 Hour] 650 mg PO Q8H PRN 09/24/18 09/24/18 History atorvastatin 20 mg PO HS 09/24/18 09/24/18 History calcium carbonate-vitamin D3 1 tab PO DAILY 09/24/18 09/24/18 History [Calcium 500 + D] cyclosporine [Restasis] 1 drp OPB Q12H 09/24/18 09/24/18 History docusate sodium 100 mg PO DAILY 09/24/18 09/24/18 History furosemide 40 mg PO DAILY 09/24/18 09/24/18 History gabapentin 400 mg PO TID 09/24/18 09/24/18 History hydrocodone-acetaminophen 1 tab PO Q4H PRN 09/24/18 09/24/18 History lisinopril 20 mg PO DAILY 09/24/18 09/24/18 History multivitamin 1 tab PO DAILY 09/24/18 09/24/18 History nitrofurantoin macrocrystal 50 mg PO DAILY 09/24/18 09/24/18 History [Macrodantin] omeprazole 20 mg PO BID 09/24/18 09/24/18 History polyethylene glycol 3350 [Miralax] 17 g PO DAILY 09/24/18 09/24/18 History vit C,L-Rv-uvruu-lutein-zeaxan 1 tab PO DAILY 09/24/18 09/24/18 History [PreserVision AREDS-2] warfarin 2 mg PO DAILY@1600 09/24/18 09/24/18 History Patient History Medical History Chronic back pain (Chronic) Recurrent UTI (Chronic) GERD (gastroesophageal reflux disease) (Chronic) Chronic diastolic (congestive) heart failure (Chronic) DVT (deep venous thrombosis) (Resolved) Pulmonary embolism (Resolved) Hypertension (Chronic) Hyperlipidemia (Chronic) Osteoarthritis (Chronic) Spinal compression fracture (Chronic) Dementia (Chronic) Surgical History History of hysterectomy (Resolved) History of bilateral hip replacements (Resolved) History of appendectomy (Chronic) Hx of tonsillectomy (Chronic) Social History Current Living Situation: Family Current Living Situation Comment: LIVES WITH DAUGHTER current occupational status: retired Other Information That Helps Us Care for You: No Feels Safe at Home: Yes Safety Concerns: Feels Safe At This Time Smoking Status: Never smoker Hx Alcohol Use: No Hx Substance Use: No Beliefs That Will Affect Care: None Preferred Language: [place] Communication Ability: Effective Product Safety Professional Required: No Physical Exam 2 Vital Signs (Past 24 Hours): Last Vital Signs Temp 36.9 C 09/25/18 07:10 Pulse 68 02/06/19 07:10 Resp 19 09/25/18 07:10 BP 170/76 H 09/25/18 07:10 Pulse Ox 92 09/25/18 07:10 Time Spent Midlevel 75 minuts with >50% of time spent at bedside with patient and daughter discussing condition and GOC.
[2018-09-25] MEDS: POTASSIUM CHLORIDE 20 MEQ TABCR PO ONE ×2 (11:10→11:12)
--- NOTE | 2018-09-25 15:12 | Hospitalist Progress Note ---
Date of Service September 25, 2018 Assessment & Plan (1) Change in mental status: This is an 87-year-old female with a PMH of HTN, HLD, diastolic heart failure, dementia, recurrent UTI and history of DVT on Coumadin who presents from home with increased drowsiness starting this morning and was found to have decompensated diastolic heart failure. -Became noticably more lethargic in the morning of admission, family denies tayla confusion -CT head with chronic small vessel ischemic change. No acute intracranial abnormality -Lethargy multifactorial-CHF with low saturation, use of too much gabapentin and opioids, any infection has to be ruled out -Chest x-ray reviewed, has possible developing infiltrate -Doxycycline intravenously was started today -Discussed with the family members especially the daughter -Appreciate palliative care input and recommendation (2) Acute on chronic diastolic (congestive) heart failure: BLE edema, weight gain over past few weeks -Echo from Mar 2018 with EF: 61%, concentric LVH, no wall motion abnormality of LV, grade 1 diastolic dysfunction, mild AV stenosis -Given 40mg IV Lasix in ED -Low sodium diet, daily weights, strict I&Os -Appreciate cardiology input and recommendation (3) Elevated troponin: Troponin elevated to 0.069 initially. Repeat pending -No chest pain or h/o IL -EKG without acute ischemic changes -Likely due to demand ischemia in setting of decompensated heart failure -Continue trending troponin, monitor on telemetry -no significant elevation of troponin to qualify ACS (4) GERD (gastroesophageal reflux disease): Continue PPI (5) Recurrent UTI: No evidence of infection We will discontinue home nitrofurantoin (6) DVT (deep venous thrombosis): H/o IVC filter placement and also history of pulmonary embolism -Continue home dose coumadin of 2mg daily -INR slightly subtherapeutic at 1.8. Continue to monitor -Has been on intravenous heparin and Coumadin -INR remains at 1.8 today (7) Hypertension: Elevated with SBP in 180s -Continue home lisinopril, IV Lasix -Add additional agents if indicated (8) Hyperlipidemia: Continue statin DVT Ppx: Continue coumadin Code status: DNR per discussion with patient, family PCP: Romeo Dispo: Admitted to telemetry. Discussed with the daughter Subjective She is an 87-year-old female with a PMH of HTN, HLD, diastolic heart failure, dementia, recurrent UTI and history of DVT on Coumadin who presents from home with increased drowsiness starting this morning. 09/25 The patient was seen and examined in telemetry unit in presence of the daughter She has been more drowsy recently and especially this morning She denies any symptoms this morning except weakness Denies any chest pain, shortness of breath, palpitation, any abdominal pain, nausea and no vomiting. Denies any fever or chills. Physical Exam 2 Vital Signs (Past 24 Hours): Last Vital Signs Temp 36.2 C L 09/25/18 11:24 Pulse 75 09/25/18 11:24 Resp 18 09/25/18 11:24 BP 121/81 09/25/18 11:24 Pulse Ox 90 09/25/18 11:24 Physical Exam: Lying in bed without any symptoms but very drowsy Constitutional: WD/WN, vitals as above Response to vocal comments is in Eyes: Closed ENMT: external ear and nose normal, oropharynx normal Neck: trachea midline, no thyromegaly Respiratory: normal respiratory effort; no respiratory distress and no labored breathing Auscultation: + diminished lung sounds and + crackles ( Minimal bibasilar crackles) Cardiovascular: Heart Sounds: normal S1 and normal S2 Gastrointestinal (Abdomen): Inspection/Auscultation: abdomen normal to inspection and normal bowel sounds Neurologic: Alert and awake. Very drowsy and generally weak Results & Data Laboratory Results Short CBC 09/24/18 09/25/18 Range/Units 18:00 06:13 WBC 6.71 8.05 (4.8-10.8) K/uL Hgb 14.7 14.5 (12.0-16.0) g/dL Hct 45.3 45.3 (37-47) % Plt Count 151 132 (130-400) K/uL BMP 09/24/18 09/24/18 09/25/18 18:00 18:50 06:13 Sodium 140 140 Potassium 4.2 3.5 D Chloride 104 104 Carbon Dioxide 33 H 30 BUN 16 14 Creatinine 0.87 0.69 Glucose 134 H 109 H Calcium 8.6 8.5 Cardiac Enzymes 09/24/18 09/24/18 09/25/18 Range/Units 18:00 20:51 06:13 Troponin I 0.069 H* 0.082 H* 0.072 H* (0-0.045) ng/ml Liver Function 09/24/18 09/24/18 Range/Units 18:00 18:50 Total Bilirubin 0.5 (0.2-1) mg/dl AST 18 (15-37) U/L ALT 28 (12-78) U/L Alkaline Phosphatase 115 (45-117) U/L Albumin 3.3 L (3.4-5.0) gm/dl Urine 09/24/18 Range/Units 19:08 Urine Color Yellow Urine Appearance Clear (Clear) Urine pH 6.0 (4.5-7.5) Ur Specific [place] 1.015 (1.000-1.030) Urine Protein Negative (Negative) Urine Glucose (UA) Negative (Negative) Medications Administered Current Inpatient Medications Acetaminophen (Tylenol) 650 mg PO Q4H PRN PRN Reason: Fever Stop: 10/24/18 23:04 Hydrocodone Bitart/Acetaminophen ([place] 5/325) 1 tab PO Q4H PRN PRN Reason: Pain Stop: 10/08/18 23:04 Last Admin: 09/25/18 08:25 Dose: 1 tab Atorvastatin Calcium (Lipitor) 20 mg PO HS [facility] Stop: 10/25/18 20:59 Docusate Sodium (Colace) 100 mg PO DAILY [facility] Stop: 10/25/18 08:59 Last Admin: 09/25/18 08:19 Dose: 100 mg Gabapentin (Neurontin) 400 mg PO TID [facility] Stop: 10/25/18 08:59 Last Admin: 09/25/18 08:19 Dose: 400 mg Heparin Sodium/Dextrose (Heparin Sodium/Dextrose) 25,000 units in 500 mls @ 23 mls/hr IV .[id number] [facility]; Protocol Stop: 10/24/18 23:32 Last Titration: 09/25/18 07:06 Dose: 23 mls/hr Furosemide 40 mg/ Syringe 4 mls @ 4 mls/min IV BID17 [facility] Stop: 10/25/18 16:59 Doxycycline Hyclate 100 mg/ (Dextrose) 110 mls @ 50 mls/hr IV BID [facility] Stop: 10/02/18 14:59 Lisinopril (Zestril) 20 mg PO DAILY [facility] Stop: 10/25/18 08:59 Last Admin: 09/25/18 11:10 Dose: 20 mg Lisinopril (Zestril) 40 mg PO QAM [facility] Stop: 10/26/18 08:59 Metoprolol Tartrate (Lopressor) 12.5 mg PO BID [facility] Stop: 10/24/18 21:44 Last Admin: 09/25/18 10:00 Dose: 12.5 mg Miscellaneous (Order Awaiting Action) 1 ea N/A QS [facility] Stop: 10/25/18 00:00 Last Admin: 09/25/18 00:05 Dose: Not Given Multivitamins (Multivitamin Tab) 1 tab PO DAILY [facility] Stop: 10/25/18 08:59 Last Admin: 09/25/18 08:19 Dose: 1 tab Pantoprazole Sodium (Protonix) 40 mg PO BID [facility] Stop: 10/25/18 08:59 Last Admin: 09/25/18 08:19 Dose: 40 mg Potassium Chloride (Klor-Con M20) 40 meq PO BID17 [facility] Stop: 10/25/18 16:59 Warfarin Sodium (Coumadin) 5 mg PO DAILY@1600 [facility] Stop: 10/25/18 15:59 _ (1) Change in mental status Altered mental status type: unspecified Coma depth: Coma timing: Qualified Code(s): R41.82 - Altered mental status, unspecified
[2018-09-25] MEDS: DOXYCYCLINE HYCLATE 100 MG in DEXTROSE 5% 100 ML IV SCH (15:41)
[2018-09-25] MEDS: POTASSIUM CHLORIDE 20 MEQ TABCR PO SCH (15:49)
[2018-09-25] MEDS: ACETAMINOPHEN 325 MG TAB PO PRN (15:49)
[2018-09-25] MEDS: FUROSEMIDE 40 MG in SYRINGE 0 ML IV SCH (15:50)
[2018-09-25] MEDS ORDERED: WARFARIN SOD 5 MG TAB PO SCH (16:00)
--- NOTE | 2018-09-25 20:18 | CT Scan Report ---
CT head/brain wo con CT DOSE: 823.12 mGy.cm HISTORY: Mental status change confusion, slurred speech TECHNIQUE: Multiaxial CT images of the head were performed without the use of intravenous contrast. A dose lowering technique was utilized adhering to the principles of ALARA. Comparison: 09/24/2017 Findings: The paranasal sinuses and mastoid air cells are clear. The calvarium and skull base are int act. The ventricles and sulci are within normal limits. There is no mass, hematoma, midline shift, or acute infarct. Considerable age-related atrophy and chronic small vessel change. Impression: No acute intracranial abnormality. No change from the prior study. The above report was generated using voice recognition software. It may contain grammatical, syntax or spelling errors. Electronically signed by: Shay Norton M.D. 09/25/2018 8:17 PM
[2018-09-25] MEDS ORDERED: PHARMACIST DISCHARGE MED REC CONSULT PRN (21:02)
[2018-09-25] MEDS: ATORVASTATIN 20 MG TAB PO SCH (21:41)
[2018-09-25] MEDS: HEPARIN STANDARD DEXTROSE 25,000 UNITS/500 ML IV SCH (21:41)
[2018-09-26] MEDS ORDERED: HALOPERIDOL LACTATE 5 MG/ML 1 ML VIAL IM STA (00:02)
[2018-09-26] MEDS ORDERED: HALOPERIDOL LACTATE 5 MG/ML 1 ML VIAL ONE ×2 (00:03→05:46)
[2018-09-26] MEDS ORDERED: GADOBUTROL 65ML VIAL IV PRN (00:54)
[2018-09-26] MEDS: DOXYCYCLINE HYCLATE 100 MG in DEXTROSE 5% 100 ML IV SCH ×3 (00:56→20:58)
[2018-09-26] MEDS ORDERED: HALOPERIDOL LACTATE 5 MG/ML 1 ML VIAL IM PRN (05:45)
[2018-09-26 06:17] LABS: Basophils # (auto) 0.04 K/uL (0-0.2); Basophils % (auto) 0.4 %; Eosinophils # (auto) 0.46 K/uL (0-0.5); Eosinophils % (auto) 4.7 %; Hemoglobin 15.8 g/dL (12.0-16.0); Immature Granulocytes # (auto) 0.01 K/uL (0.00-0.02); Immature Granulocytes % (auto) 0.1 %; Lymphocytes # (auto) 1.16 K/uL (1.2-3.4); Lymphocytes % (auto) 11.9 %; Mean Corpuscular Hgb Conc 32.9 g/dL (32-36); Mean Corpuscular Volume 94.5 fL (80-100); Mean Platelet Volume 9.1 fL (7.4-10.4); Monocytes % (auto) 9.3 %; Neutrophils # (auto) 7.14 K/uL (1.4-6.5); Neutrophils % (auto) 73.6 %; Platelet Count 147 K/uL (130-400); RDW Coefficient of Variation 14.3 % (11.5-14.5); RDW Standard Deviation 49.5 fL (36.4-46.3); Red Blood Count 5.08 M/uL (4.2-5.4); White Blood Count 9.71 K/uL (4.8-10.8)
[2018-09-26 06:36] LABS: Partial Thromboplastin Ratio 3.2; Prothrombin Time 28.8 Seconds (9.0-12.0)
[2018-09-26 06:38] LABS: Partial Thromboplastin Time 83.7 Seconds (21.0-31.0)
[2018-09-26 06:46] LABS: BUN Creatinine Ratio 22.4 (10-20); Calcium 8.5 mg/dl (8.5-10.1); Creatinine Clr Calc Pharmacy 47.7 ml/min; Magnesium 1.9 mg/dl (1.8-2.4); Potassium 3.7 mmol/L (3.5-5.1)
--- NOTE | 2018-09-26 06:47 | Ultrasound Report ---
US carotid doppler BI CLINICAL HISTORY: 87 years-old Female presenting with cva. TECHNIQUE: Real-time grayscale and color and spectral Doppler ultrasound imaging of the bilateral car otid arteries was performed. Stenosis measurements were based on NASCET-like criteria (distal lumen d iameter as the denominator for stenosis measurement). COMPARISON: 09/01/2014. FINDINGS: Examination limited by patient discomfort. RIGHT: Common carotid artery (CCA): Atherosclerosis at the carotid bulb. Peak systolic velocity (PSV) 66 cm/ s. Internal carotid artery (ICA): Atherosclerosis of the proximal ICA. PSV 86 cm/s. End diastolic veloci ty (EDV) 14 cm/s. ICA/CCA (systolic) ratio: 1.3. External carotid artery (ECA): Patent. PSV 61 cm/s. LEFT: CCA: Atherosclerosis at the carotid bulb. Tortuosity also noted. PSV 67 cm/s. ICA: Atherosclerosis of the proximal ICA. PSV 66 cm/s. EDV 12 cm/s. ICA/CCA (systolic) ratio: 1.0. ECA: Patent. PSV 49 cm/s. Bilateral antegrade flow within the vertebral arteries. Blood pressure: Not performed due to limb restriction. Brachial: Right: mmHg, Left: mmHg. Reference ranges: Stenosis measurements are compared to reference velocity parameters by the Society of Radiologists in Ultrasound (SRU) consensus and Sonographic NASCET index (S-NASCET). * SRU Primary parameters: ICA PSV <125 cm/s = normal or less than 50% stenosis; ICA PSV 125-230 cm/s = 50-69% stenosis; ICA PSV >230 cm/s = greater than or equal to 70% stenosis. * SRU Additional parameters: ICA/CCA PSV ratio <2 = normal or less than 50% stenosis; ratio 2-4 = 5 0-69% stenosis; ratio >4 = greater than or equal to 70% stenosis. ICA EDV <40 cm/s = normal or less t yates 50% stenosis; ICA EDV 40-100 cm/s = 50-69% stenosis; ICA EDV >100 cm/s = greater than or equal to 70% stenosis. * S-NASCET parameters: Deceleration spectral broadening + PSV <125 cm/s = less than 50% stenosis; pa nsystolic spectral broadening + PSV <125 cm/s = 16-49% stenosis; pansystolic spectral broadening + PS V >125 cm/s + EDV <110 cm/s or ICA/CCA PSV ratio 2-4 = 50-69% stenosis; pansystolic spectral broadeni ng + PSV >270 cm/s OR EDV >110 cm/s OR ICA/CCA PSV ratio >4 = 70-79% stenosis; EDV >140 cm/s = 80-99% stenosis. IMPRESSION: 1. Atherosclerosis without hemodynamically significant stenosis in the carotid arteries. Electronically signed by: Sanjiv Floyd M.D. 09/26/2018 6:45 AM
[2018-09-26 06:49] LABS: Phosphorus 3.3 mg/dl (2.5-4.9)
--- NOTE | 2018-09-26 06:57 | Magnetic Resonance Report ---
MRI OF THE BRAIN WITHOUT AND WITH IV CONTRAST CLINICAL HISTORY: AMS,stroke like symptoms COMPARISON STUDY: MRI of the brain September 01, [address] September 25, 2018. TECHNIQUE: Utilizing a 1.5 Shilpa magnet and dedicated coil, multiplanar, multiecho imaging of the br ain was performed pre and postcontrast administration. IV administration of 9 mL of Gadavist contras t was uneventful. FINDINGS: Note is made of an 8 mm focus of restricted diffusion within the left internal capsule. The re is a 5 mm focus of restricted diffusion within the right external capsule. There is no mass effect . There is no hemorrhage. Exam is compromised by motion artifact. Ventricular system is unremarkable for age. The basilar cisterns are patent. There are no extra-axial collections. Flow-voids for the ma doc intracranial vessels are present. Extensive white matter T2 hyperintensity suggest small vessel d isease. An enhancing focus along the falx is unchanged. This favors ossification/calcification of the falx. A small meningioma could appear similar although is considered less likely. Note is made of a 2.2 cm T1 hypointense focus of marrow signal abnormality within the left frontal bone which is new si nce MRI of September 01, 2014. There is no correlate on the head CT. This demonstrates enhancement. IMPRESSION: 1. 8 mm acute infarct within the left internal capsule and 5 mm acute infarct within the right manager marketing al capsule. No mass effect. No hemorrhage. 2. 2.2 cm focus of marrow signal abnormality within the left frontal bone which is new since MRI of J an2014. This finding is nonspecific but raises the possibility of a neoplastic process. This could be correlated with history of malignancy and a possible follow-up nonemergent whole-body bone scan as an outpatient. This finding will be called to the ordering physician. 3. Extensive small vessel disease. Electronically signed by: Naun Horne M.D. 09/26/2018 6:56 AM
--- NOTE | 2018-09-26 08:33 | Hospitalist Progress Note ---
Date of Service September 25, 2018 Around 7:330Pm on sep 25 2018 Patient was found to be more confused, right facial droop, slurred speech and right hand weakness. Saw the patient. Patient was mumbling words and poor grasp on right side compared to left side.Daughter in room. Stroke alert was called. Stat CT head no acute findings. Has Microvascular changes. By the time she came from ct scan patient was oriented to name and was able to follow simple commands and no weakness was found. Her mental status was back to morning state but not back to her usual self.Patient is on iv heparin as her INR was 1.8.[facility] advised to keep her sbp 120-140 as she has severe microvascular disease. Also recommeded MRI of head and continue IV heparin. Later patinet was agitated and received im haldol. Physical Exam 2 Vital Signs (Past 24 Hours): Last Vital Signs Temp 36.7 C 09/26/18 07:22 Pulse 75 09/26/18 07:22 Resp 20 09/26/18 07:22 BP 169/79 H 09/26/18 07:22 Pulse Ox 96 09/26/18 07:22
[2018-09-26 08:52] LABS: Estimated Average Glucose 111 mg/dl; Hemoglobin A1C 5.5 % (4.5-5.6)
[2018-09-26] MEDS: MULTIVITAMIN TAB PO SCH (08:54)
[2018-09-26] MEDS: PANTOprazole 40 MG TAB PO SCH ×2 (08:54→20:54)
[2018-09-26] MEDS: METOPROLOL TARTRATE 25 MG TAB PO SCH ×2 (08:56→20:54)
[2018-09-26] MEDS: FUROSEMIDE 40 MG in SYRINGE 0 ML IV SCH (08:56)
[2018-09-26] MEDS: DOCUSATE SODIUM 100 MG CAP PO SCH (08:57)
[2018-09-26] MEDS: LISINOPRIL 40 MG TAB PO SCH (08:57)
[2018-09-26] MEDS: POTASSIUM CHLORIDE 20 MEQ TABCR PO SCH (08:58)
--- NOTE | 2018-09-26 10:50 | Palliative Care Progress Note ---
Date of Service September 26, 2018 Assessment & Plan (1) Goals of care, counseling/discussion: -87 year old female patient with PMH vascular dementia, chronic diastolic heart failure, GERD, chronic back pain, PE/DVT, recurrent UTI, and others, presented with altered mental status. Initial workup for infection was negative. Last night, patient suffered a stroke-- right internal and left external capsule as showed on MRI brain. Patient was on Coumadin for history of DVT, but she also has IVC filter. MRI brain did show a frontal bone lesion that is questionable for neoplasm-- could be cause of CVA? Neurology is consulted and will be seeing patient today. Likely will continue Coumadin, which daughter is okay with. -Spoke with patient's daughter about goals of care. Overall goal is for comfort , no heroic measures. Elida does not think her mother would even want to go through rehab, but we will see what the next 24-48 hours bring. -If patient is awake enough to eat/drink, allow her to comfort feed. Discussed possibility of aspiration given her acute CVA, daughter is aware. -Gave options for either SNF or home on hospice if that is the route they decide to take. Case management will follow up. Patient will need 24/7 care if she does go home. -Patient is DNR and has living will which clearly lays out her wishes in the event of an end-stage condition. There is a copy on the chart. -Will continue to follow and assist in planning. (2) Change in mental status: (3) Acute on chronic diastolic (congestive) heart failure: (4) Chronic back pain: (5) Recurrent UTI: Subjective Met with patient and her daughter, Elida. Patient unfortunately suffered a CVA last evening. She was a stroke alert, CT head showed nothing acute, but follow up MRI showed acute infarct in right internal and left external capsule. She was exhibiting right facial droop and right sided weakness, which remains today. Spoke with daughter at length as patient is pleasantly confused and less alert today. She stated that her mother was always clear about her wishes, has had a living will for a long time stating she would not want any heroic measures including CPR, intubation, feeding tube, etc. Review of Systems Unobtainable due to cognitive status Physical Exam 2 Vital Signs (Past 24 Hours): Last Vital Signs Temp 36.7 C 09/26/18 07:22 Pulse 75 09/26/18 07:22 Resp 20 09/26/18 07:22 BP 169/79 H 09/26/18 07:22 Pulse Ox 96 09/26/18 07:22 Constitutional: + obese and comfortable; no acute distress ENMT: Ears: no hearing impairment Neck: normal visual inspection and trachea midline Respiratory: normal respiratory effort; no respiratory distress and no labored breathing Auscultation: lungs clear to auscultation bilaterally and + diminished lung sounds (bases) Cardiovascular: Rate/Rhythm: regular rate and regular rhythm Heart Sounds: normal S1 and normal S2 Vessels: dorsalis pedis pulses present; no JVD Extremities: no edema (trace non-pitting edema to BLE) Gastrointestinal (Abdomen): Inspection/Auscultation: abdomen normal to inspection, + abdomen distended (obesely distended, but soft) and normal bowel sounds Percussion/Palpation: abdomen nontender Neurologic: awake and + confused; + does not move all extremities (right arm essentially flaccid) Psychiatric: Orientation: oriented to person; + not oriented to place and + not oriented to time Time Spent Midlevel 40 minutes with >50% of time spent at bedside with patient and daughter discussing condition and goals of care. _ (1) Change in mental status Altered mental status type: unspecified Coma depth: Coma timing: Qualified Code(s): R41.82 - Altered mental status, unspecified
[2018-09-26] MEDS: RESTASIS~ORDER AWAITING ACTION SCH ×3 (10:51→23:41)
[2018-09-26] MEDS ORDERED: Nursing to Pharmacy Communication ONE (10:54)
--- NOTE | 2018-09-26 11:14 | Cardiology Progress Note ---
Date of Service September 26, 2018 Assessment & Plan (1) Acute on chronic diastolic (congestive) heart failure: diuresed well does not examine as volume overloaded will d/c IV lasix not taking orals currently, will hold off oral diuretics at this time and follow volume status clinically (2) Change in mental status: chronic vascular dementia along with acute cva x 2 do not see any cardiac component (3) Acute CVA (cerebrovascular accident): no atrial fibrillation on monitor no indication for coumadin from cardiac standpoint does have a hx of dvt but is s/p IVC filter ?need for ongoing coumadin Subjective Pt seen and examined with daughter at bedside. Events of overnight reviewed. Pt awake but without meaningful response. tele reviewed: wandering atrial pacemaker/multifocal atrial tachycardia with possible short salvos of PSVT Physical Exam 2 Vital Signs (Past 24 Hours): Last Vital Signs Temp 36.7 C 09/26/18 07:22 Pulse 75 09/26/18 07:22 Resp 20 09/26/18 07:22 BP 169/79 H 09/26/18 07:22 Pulse Ox 96 09/26/18 07:22 Physical Exam: General: Awake, alert and oriented x 3. No acute distress. HEENT: Normocephalic, atraumatic. Pupils equal, round and reactive to light and accommodation. Extraocular muscles are intact. Anicteric sclera. Moist mucous membranes. Neck: No JVD. No bruit. Cardiovascular: regularly irregular, unable to appreciate murmur, rub or gallop. Pulmonary: Clear to auscultation bilaterally. No rales, rhonchi, or wheezing. Abdomen: Bowel sounds x 4, soft. No rebound, guarding or tenderness. No organomegaly. Extremities: No clubbing, cyanosis or edema. +2 pedal pulses bilaterally. Skin: Warm and dry. _ (1) Change in mental status Altered mental status type: unspecified Coma depth: Coma timing: Qualified Code(s): R41.82 - Altered mental status, unspecified
--- NOTE | 2018-09-26 14:42 | Neurology Consultation ---
Date of Consultation September 26, 2018 Assessment & Plan (1) Acute CVA (cerebrovascular accident): 1. MRI with internal capsule also questionable lesion in bone marrow 2. currently on coumadin for DVT- s/p IVC filter ? need per cards 3. optimize HTN, DM, HLD - consider patients age 4. fall precautions 5. PT/OT/speech for discharge needs 6. no source of infection found 7. TTE- no ASD 8. palliative medicine involved for direction of care. 9. carotid no significant stenosis Supervising Physician Co-Signing Physician Notes I have seen and discussed above patient with Dr Tristan Ortega. Patient was seen and examined this afternoon. Family at bedside. I reviewed her MRI brain. T2 FLAIR coronal shows subcortical leukoencephalopathy which is consistent with known history of vascular dementia. DWI shows acute bilateral lacunar strokes. On examine patient appears to have hypoactive delirium. Very confused / disoriented. Not recognizing daughter. Non sensible speech. Patient is currently on Coumadin. I would not recommend adding an antiplatlet agent at this time. Hypotensive this afternoon. Recommend checking ESR, procalcitonin, blood cultures. Patient high risk for aspiration pneumonia. Abx started today. Agree with continued metabolic / infectious work up which may be contributing to delirium. History of Present Illness Reason for Consultation: stroke like symptoms Requesting Physician: Britt Barry MD Attending Physician: Britt Barry MD History of Present Illness Rhoda is an 87 year old female with a PMH- HTN, HLD, diastolic heart failure , vascular dementia know to our office, recurrent UTI and history of DVT on Coumadin who presents from home with increased drowsiness starting this morning. She lives in a mother in law suite in her daughter and son in laws home. She is fairly independent at baseline, making her own meals and her own laundry, She walks with a walker. She was more fatigued than usual and daughter was having difficulty waking her up. She fell asleep during lunch, and would open her eyes when prompted but seemed to remain lethargic. She was seen at her PCP for increased lower extremity swelling and had a 5 pounds weight gain since previous appointment. Swelling was attributed to patient keeping legs in dependent position over the past few days to be close to the radiator. Even though she was lethargic her daughter states she was taking her medications. Her blood pressure on admission was 170/76. denies sickness, falls, CP, SOB, + right sided weakness. she does have a chronic LLE foot drop, and a history of DVT and phlebitis. Allergies Allergy/AdvReac Type Severity Reaction Status Date / Time iodine Allergy Unknown BETADINE Verified 09/24/18 18:17 Sulfa (Sulfonamide Allergy Unknown "SULFA Verified 09/24/18 18:17 Antibiotics) DRUGS" Home Medications Home Medications Medication Instructions Recorded Confirmed Type acetaminophen [Tylenol 8 Hour] 650 mg PO Q8H PRN 09/24/18 09/24/18 History atorvastatin 20 mg PO HS 09/24/18 09/24/18 History calcium carbonate-vitamin D3 1 tab PO DAILY 09/24/18 09/24/18 History [Calcium 500 + D] cyclosporine [Restasis] 1 drp OPB Q12H 09/24/18 09/24/18 History docusate sodium 100 mg PO DAILY 09/24/18 09/24/18 History furosemide 40 mg PO DAILY 09/24/18 09/24/18 History gabapentin 400 mg PO TID 09/24/18 09/24/18 History hydrocodone-acetaminophen 1 tab PO Q4H PRN 09/24/18 09/24/18 History lisinopril 20 mg PO DAILY 09/24/18 09/24/18 History multivitamin 1 tab PO DAILY 09/24/18 09/24/18 History nitrofurantoin macrocrystal 50 mg PO DAILY 09/24/18 09/24/18 History [Macrodantin] omeprazole 20 mg PO BID 09/24/18 09/24/18 History polyethylene glycol 3350 [Miralax] 17 g PO DAILY 09/24/18 09/24/18 History vit C,B-Ht-ojevf-lutein-zeaxan 1 tab PO DAILY 09/24/18 09/24/18 History [PreserVision AREDS-2] warfarin 2 mg PO DAILY@1600 09/24/18 09/24/18 History Patient History Medical History Chronic back pain (Chronic) Recurrent UTI (Chronic) GERD (gastroesophageal reflux disease) (Chronic) Chronic diastolic (congestive) heart failure (Chronic) DVT (deep venous thrombosis) (Resolved) Pulmonary embolism (Resolved) Hypertension (Chronic) Hyperlipidemia (Chronic) Osteoarthritis (Chronic) Spinal compression fracture (Chronic) Dementia (Chronic) Surgical History History of hysterectomy (Resolved) History of bilateral hip replacements (Resolved) History of appendectomy (Chronic) Hx of tonsillectomy (Chronic) Social History marital status: / Current Living Situation: Family Current Living Situation Comment: LIVES WITH DAUGHTER current occupational status: retired Other Information That Helps Us Care for You: No Feels Safe at Home: Yes Safety Concerns: Feels Safe At This Time Smoking Status: Never smoker Hx Alcohol Use: No Hx Substance Use: No Beliefs That Will Affect Care: None Preferred Language: Bel[place]ian Communication Ability: Effective Nuclear Medicine Technician Required: No Physical Exam 2 Vital Signs (Past 24 Hours): Last Vital Signs Temp 36.4 C L 09/26/18 11:43 Pulse 84 09/26/18 11:43 Resp 24 09/26/18 11:43 BP 122/68 09/26/18 11:43 Pulse Ox 93 09/26/18 11:43 Physical Exam: Constitutional: appearance over nourished, sitting leaning to left in chair, lethargic. 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 toes on right upgoing. left neutral Sensory: unable to assess Coordination: off and on following commands Gait/Stance: Posture sitting in bedside chair leaning to left. gaze to left. Motor: does not cooperate for exam Strength: squeezes with right hand but no consistantly, squeezes with left will push and pull moves LE spontaneously and with stimulation not with command. Results & Data Laboratory Results Abnormal lab results 09/25/18 09/26/18 09/26/18 Range/Units 19:48 05:54 05:54 Hct 48.0 H (37-47) % RDW Std Deviation 49.5 H (36.4-46.3) fL Neut # (Auto) 7.14 H (1.4-6.5) K/uL Lymph # (Auto) 1.16 L (1.2-3.4) K/uL [place] # (Auto) 0.90 H (0.11-0.59) K/uL PT (9.0-12.0) Seconds INR (0.9-1.1) APTT (21.0-31.0) Seconds BUN 19 H (7-18) mg/dl BUN/Creatinine Ratio 22.4 H (10-20) Glucose 111 H (70-99) mg/dl POC Glucose 105 H (70-99) 09/26/18 Range/Units 05:54 Hct (37-47) % RDW Std Deviation (36.4-46.3) fL Neut # (Auto) (1.4-6.5) K/uL Lymph # (Auto) (1.2-3.4) K/uL [place] # (Auto) (0.11-0.59) K/uL PT 28.8 H (9.0-12.0) Seconds INR 3.0 H (0.9-1.1) APTT 83.7 H* (21.0-31.0) Seconds BUN (7-18) mg/dl BUN/Creatinine Ratio (10-20) Glucose (70-99) mg/dl POC Glucose (70-99) Diagnostic Findings MRI brain- 8 mm acute infarct within the left internal capsule and 5 mm acute infarct within the right external capsule. No mass effect. No hemorrhage. 2.2 cm focus of marrow signal abnormality within the left frontal bone which is new since MRI of September 01, 2014. This finding is nonspecific but raises the possibility of a neoplastic process. This could be correlated with history of malignancy and a possible follow-up nonemergent whole-body bone scan as an outpatient. Extensive small vessel disease. carotid doppler-Atherosclerosis without hemodynamically significant stenosis in the carotid arteries. CXR- Cardiomegaly with volume overload/congestive change. Patchy central infiltrates in the right upper and left lower lungs may represent developing pulmonary edema or an infectious or inflammatory infiltrate. TTE- EF 60-65 % no ASD
--- NOTE | 2018-09-26 16:23 | Hospitalist Progress Note ---
Date of Service September 26, 2018 Assessment & Plan (1) Acute CVA (cerebrovascular accident): Stroke alert was called in last night (09/25) due to right facial droop and decreased movement of right sided extremities with dysarthria MRI of the brain showed 8 mm acute infarct within the left internal capsule and 5 mm acute infarct within the right external capsule. No mass effect. No hemorrhage. Carotid ultrasound has been negative for any significant obstruction Has been on Coumadin for history of DVT and the INR therapeutic Appreciate neurology input Appreciated palliative care input We will continue current medications for now Like to be transferred to hospice care or comfort care from tomorrow or day after Discussed with the daughter (2) Change in mental status: This is an 87-year-old female with a PMH of HTN, HLD, diastolic heart failure, dementia, recurrent UTI and history of DVT on Coumadin who presents from home with increased drowsiness starting this morning and was found to have decompensated diastolic heart failure. -Became noticably more lethargic in the morning of admission, family denies tayla confusion -CT head with chronic small vessel ischemic change. No acute intracranial abnormality -Lethargy multifactorial-CHF with low saturation, use of too much gabapentin and opioids, any infection has to be ruled out -Chest x-ray reviewed, has possible developing infiltrate -Doxycycline intravenously was started today -Discussed with the family members especially the daughter -Appreciate palliative care input and recommendation (3) Acute on chronic diastolic (congestive) heart failure: BLE edema, weight gain over past few weeks -Echo from Mar 2018 with EF: 61%, concentric LVH, no wall motion abnormality of LV, grade 1 diastolic dysfunction, mild AV stenosis -Given 40mg IV Lasix in ED -Low sodium diet, daily weights, strict I&Os -Appreciate cardiology input and recommendation No CHF (4) Elevated troponin: Troponin elevated to 0.069 initially. Repeat pending -No chest pain or h/o SD -EKG without acute ischemic changes -Likely due to demand ischemia in setting of decompensated heart failure -Continue trending troponin, monitor on telemetry -no significant elevation of troponin to qualify ACS (5) GERD (gastroesophageal reflux disease): Continue PPI (6) Recurrent UTI: No evidence of infection We will discontinue home nitrofurantoin (7) DVT (deep venous thrombosis): H/o IVC filter placement and also history of pulmonary embolism -Continue home dose coumadin of 2mg daily -INR slightly subtherapeutic at 1.8. Continue to monitor -Has been on intravenous heparin and Coumadin -INR is therapeutic (8) Hypertension: Elevated with SBP in 180s -Continue home lisinopril, IV Lasix -Add additional agents if indicated (9) Hyperlipidemia: Continue statin Statin dose has been increased DVT Ppx: Continue coumadin Code status: DNR per discussion with patient, family PCP: Romeo Dispo: Admitted to telemetry. Discussed with the daughter Subjective She is an 87-year-old female with a PMH of HTN, HLD, diastolic heart failure, dementia, recurrent UTI and history of DVT on Coumadin who presents from home with increased drowsiness starting this morning. 09/25 The patient was seen and examined in telemetry unit in presence of the daughter She has been more drowsy recently and especially this morning She denies any symptoms this morning except weakness Denies any chest pain, shortness of breath, palpitation, any abdominal pain, nausea and no vomiting. Denies any fever or chills. 09/26 The patient was seen and examined in presence of the daughter She has had sudden onset of right facial droop with right-sided weakness last night Stroke alert was called in and MRI of the brain did show new stroke She has been neglecting right side with right facial droop and right hemiplegia She has been responding to commands Physical Exam 2 Vital Signs (Past 24 Hours): Last Vital Signs Temp 36.7 C 09/26/18 15:45 Pulse 80 09/26/18 15:45 Resp 20 09/26/18 15:45 BP 95/68 L 09/26/18 15:45 Pulse Ox 94 09/26/18 15:45 Physical Exam: Lying in bed without any acute symptoms but has right facial droop Constitutional: WD/WN, vitals as above Eyes: PERRL, conjunctivae normal, anicteric sclerae ENMT: external ear and nose normal, oropharynx normal Neck: trachea midline, no thyromegaly Respiratory: normal respiratory effort; no respiratory distress and no labored breathing Auscultation: + diminished lung sounds and + crackles ( Minimal bibasilar crackles) Cardiovascular: Rate/Rhythm: regular rate and regular rhythm Heart Sounds: normal S1 and normal S2 Gastrointestinal (Abdomen): Inspection/Auscultation: abdomen normal to inspection and normal bowel sounds Neurologic: awake and + confused Speech / Cognition: + abnormal speech, + expressive aphasia and + receptive aphasia Motor/Sensory: + abnormal movement Cranial Nerves: no nystagmus Results & Data Laboratory Results Short CBC 09/26/18 Range/Units 05:54 WBC 9.71 (4.8-10.8) K/uL Hgb 15.8 (12.0-16.0) g/dL Hct 48.0 H (37-47) % Plt Count 147 (130-400) K/uL BMP 09/26/18 05:54 Sodium 138 Potassium 3.7 Chloride 104 Carbon Dioxide 28 BUN 19 H Creatinine 0.83 Glucose 111 H Calcium 8.5 Medications Administered Current Inpatient Medications Acetaminophen (Tylenol) 650 mg PO Q4H PRN PRN Reason: Fever Stop: 10/24/18 23:04 Last Admin: 09/25/18 15:49 Dose: 650 mg Hydrocodone Bitart/Acetaminophen ([place] 5/325) 1 tab PO Q4H PRN PRN Reason: Pain Stop: 10/08/18 23:04 Last Admin: 09/25/18 08:25 Dose: 1 tab Atorvastatin Calcium (Lipitor) 20 mg PO HS [facility] Stop: 10/25/18 20:59 Last Admin: 09/25/18 21:41 Dose: 20 mg Docusate Sodium (Colace) 100 mg PO DAILY [facility] Stop: 10/25/18 08:59 Last Admin: 09/26/18 08:57 Dose: 100 mg Gabapentin (Neurontin) 400 mg PO TID [facility] Stop: 10/25/18 08:59 Last Admin: 09/25/18 19:14 Dose: Not Given Gadobutrol (Gadavist 65ml) 9 ml IV ONCE PRN PRN Reason: Interaction Checking Stop: 09/30/18 00:53 Last Admin: 09/26/18 00:54 Dose: 9 ml Haloperidol Lactate (Haldol) 2.5 mg IM Q6H PRN PRN Reason: Agitation Stop: 10/26/18 05:44 Doxycycline Hyclate 100 mg/ (Dextrose) 110 mls @ 50 mls/hr IV BID [facility] Stop: 10/02/18 14:59 Last Infusion: 09/26/18 11:05 Dose: Infused Lisinopril (Zestril) 40 mg PO QAM [facility] Stop: 10/26/18 08:59 Last Admin: 09/26/18 08:57 Dose: 40 mg Metoprolol Tartrate (Lopressor) 12.5 mg PO BID [facility] Stop: 10/24/18 21:44 Last Admin: 09/26/18 08:56 Dose: 12.5 mg Miscellaneous (Order Awaiting Action) 1 ea N/A QS [facility] Stop: 10/25/18 00:00 Last Admin: 09/26/18 10:51 Dose: Not Given Miscellaneous Information (Pharmacist Discharge Med Rec Consult) 1 ea N/A UD PRN PRN Reason: Consult Stop: 10/25/18 21:01 Multivitamins (Multivitamin Tab) 1 tab PO DAILY [facility] Stop: 10/25/18 08:59 Last Admin: 09/26/18 08:54 Dose: 1 tab Pantoprazole Sodium (Protonix) 40 mg PO BID [facility] Stop: 10/25/18 08:59 Last Admin: 09/26/18 08:54 Dose: 40 mg Warfarin Sodium (Coumadin) 5 mg PO DAILY@1600 [facility] Stop: 10/25/18 15:59 Last Admin: 09/25/18 15:49 Dose: 5 mg _ (1) Change in mental status Altered mental status type: unspecified Coma depth: Coma timing: Qualified Code(s): R41.82 - Altered mental status, unspecified
[2018-09-26] MEDS: ATORVASTATIN 20 MG TAB PO SCH (20:54)
[2018-09-27 06:44] LABS: Basophils # (auto) 0.05 K/uL (0-0.2); Basophils % (auto) 0.5 %; Eosinophils # (auto) 0.45 K/uL (0-0.5); Eosinophils % (auto) 4.7 %; Hematocrit (blood only) 47.3 % (37-47); Hemoglobin 15.8 g/dL (12.0-16.0); Immature Granulocytes # (auto) 0.02 K/uL (0.00-0.02); Immature Granulocytes % (auto) 0.2 %; Lymphocytes # (auto) 1.42 K/uL (1.2-3.4); Lymphocytes % (auto) 14.7 %; Mean Corpuscular Hgb Conc 33.4 g/dL (32-36); Mean Corpuscular Volume 92.7 fL (80-100); Mean Platelet Volume 9.3 fL (7.4-10.4); Monocytes # (auto) 0.86 K/uL (0.11-0.59); Monocytes % (auto) 8.9 %; Neutrophils # (auto) 6.86 K/uL (1.4-6.5); Platelet Count 160 K/uL (130-400); RDW Coefficient of Variation 14.8 % (11.5-14.5); RDW Standard Deviation 50.2 fL (36.4-46.3); White Blood Count 9.66 K/uL (4.8-10.8)
[2018-09-27 06:58] LABS: Partial Thromboplastin Ratio 1.4; Partial Thromboplastin Time 37.2 Seconds (21.0-31.0); Prothrombin Time 41.5 Seconds (9.0-12.0)
[2018-09-27 07:05] LABS: INR 4.5 (0.9-1.1)
[2018-09-27 07:15] LABS: BUN Creatinine Ratio 27.5 (10-20); Creatinine Clr Calc Pharmacy 42.4 ml/min; Est GFR (African American) 63.6; Est GFR (Non-African American) 54.9; Potassium 3.9 mmol/L (3.5-5.1)
[2018-09-27 07:22] LABS: Phosphorus 3.9 mg/dl (2.5-4.9)
[2018-09-27] MEDS: RESTASIS~ORDER AWAITING ACTION SCH ×2 (08:24→16:14)
[2018-09-27] MEDS: DOXYCYCLINE HYCLATE 100 MG in DEXTROSE 5% 100 ML IV SCH (08:44)
[2018-09-27] MEDS: PANTOprazole 40 MG TAB PO SCH ×2 (08:45→20:10)
[2018-09-27] MEDS: METOPROLOL TARTRATE 25 MG TAB PO SCH ×2 (08:45→20:10)
[2018-09-27] MEDS: LISINOPRIL 40 MG TAB PO SCH (08:45)
[2018-09-27] MEDS: MULTIVITAMIN TAB PO SCH (08:45)
[2018-09-27] MEDS: DOCUSATE SODIUM 100 MG CAP PO SCH (08:46)
[2018-09-27 12:56] LABS: Hydrocodone Urine 391 NG/ML (CUTOFF=50); Hydromor Urine 73 NG/ML (CUTOFF=50); Morphine Urine NEGATIVE NG/ML (CUTOFF=50); Norhydrocodone Conf Ur 610 NG/ML (CUTOFF=50); Noroxycodone Urine NEGATIVE NG/ML (CUTOFF=50); Oxycodone Urine NEGATIVE NG/ML (CUTOFF=50)
--- NOTE | 2018-09-27 13:12 | Palliative Care Progress Note ---
Date of Service September 27, 2018 Assessment & Plan (1) Goals of care, counseling/discussion: -87 year old female patient with PMH vascular dementia, chronic diastolic heart failure, GERD, chronic back pain, PE/DVT, recurrent UTI, and others, presented with altered mental status. Initial workup for infection was negative. Then suffered right internal and left external CVA. -Today, patient is MUCH improved. She is awake and alert. Oriented to personal and place, not time or event. Still confused/delirious, but again is so much improved from yesterday. -Daughter is at bedside and is extremely happy with progress. Patient will likely need SNF for rehab then eventually back home. -We talked about the bone lesion in frontal region. Daughter stated that she knows patient would not want any treatment for possible malignancy. They may want to follow up as an outpatient to discuss, but again patient would not want to undergo invasive/aggressive diagnostic procedures or treatment. -Will continue to follow as needed. (2) Change in mental status: (3) Acute on chronic diastolic (congestive) heart failure: (4) Chronic back pain: (5) Recurrent UTI: Subjective Patient is MUCH improved today. SHe is awake and alert. SItting up in chair comfortably, feeding herself with her right hand which was flaccid yesterday. Her daughter is at bedside and is elated with patient's progress. Unable to obtain full ROS due to confusion, but patient denied any pain or discomfort. Review of Systems Unobtainable due to cognitive status Physical Exam 2 Vital Signs (Past 24 Hours): Last Vital Signs Temp 36.4 C L 09/27/18 12:00 Pulse 85 09/27/18 07:30 Resp 20 09/27/18 12:00 BP 115/69 09/27/18 12:00 Pulse Ox 97 09/27/18 12:00 Constitutional: + obese and comfortable; no acute distress ENMT: Ears: no hearing impairment Neck: normal visual inspection and trachea midline Respiratory: normal respiratory effort; no respiratory distress and no labored breathing Auscultation: lungs clear to auscultation bilaterally and + diminished lung sounds (bases) Cardiovascular: Rate/Rhythm: regular rate and regular rhythm Heart Sounds: normal S1 and normal S2 Vessels: dorsalis pedis pulses present; no JVD Extremities: no edema (trace non-pitting edema to BLE) Gastrointestinal (Abdomen): Inspection/Auscultation: abdomen normal to inspection, + abdomen distended (obesely distended, but soft) and normal bowel sounds Percussion/Palpation: abdomen nontender Neurologic: awake and + confused Psychiatric: Orientation: alert, oriented to person, oriented to place and cooperative; + not oriented to time Time Spent Midlevel 35 minutes with >50% of time spent at bedside with patient and daughter discussing condition and plan of care. _ (1) Change in mental status Altered mental status type: unspecified Coma depth: Coma timing: Qualified Code(s): R41.82 - Altered mental status, unspecified
--- NOTE | 2018-09-27 13:46 | Hospitalist Progress Note ---
Date of Service September 27, 2018 Assessment & Plan (1) Acute CVA (cerebrovascular accident): Stroke alert was called in last night (09/25) due to right facial droop and decreased movement of right sided extremities with dysarthria MRI of the brain showed 8 mm acute infarct within the left internal capsule and 5 mm acute infarct within the right external capsule. No mass effect. No hemorrhage. Carotid ultrasound has been negative for any significant obstruction Has been on Coumadin for history of DVT and the INR therapeutic Appreciate neurology input Appreciated palliative care input We will continue current medications for now Like to be transferred to hospice care or comfort care from tomorrow or day after Discussed with the daughter Clinically a lot better today without any significant symptoms of stroke Out of bed on a chair and communicating normally We will continue with PT and OT and possible placement Discussed with the daughter (2) Change in mental status: This is an 87-year-old female with a PMH of HTN, HLD, diastolic heart failure, dementia, recurrent UTI and history of DVT on Coumadin who presents from home with increased drowsiness starting this morning and was found to have decompensated diastolic heart failure. -Became noticably more lethargic in the morning of admission, family denies tayla confusion -CT head with chronic small vessel ischemic change. No acute intracranial abnormality -Lethargy multifactorial-CHF with low saturation, use of too much gabapentin and opioids, any infection has to be ruled out -Chest x-ray reviewed, has possible developing infiltrate -Doxycycline intravenously was started today -Discussed with the family members especially the daughter -Appreciate palliative care input and recommendation -We will continue current treatment with possible placement on discharge (3) Acute on chronic diastolic (congestive) heart failure: BLE edema, weight gain over past few weeks -Echo from Mar 2018 with EF: 61%, concentric LVH, no wall motion abnormality of LV, grade 1 diastolic dysfunction, mild AV stenosis -Given 40mg IV Lasix in ED -Low sodium diet, daily weights, strict I&Os -Appreciate cardiology input and recommendation No CHF Denies any shortness of breath (4) Elevated troponin: Troponin elevated to 0.069 initially. Repeat pending -No chest pain or h/o DC -EKG without acute ischemic changes -Likely due to demand ischemia in setting of decompensated heart failure -Continue trending troponin, monitor on telemetry -no significant elevation of troponin to qualify ACS (5) GERD (gastroesophageal reflux disease): Continue PPI (6) Recurrent UTI: No evidence of infection We will discontinue home nitrofurantoin (7) DVT (deep venous thrombosis): H/o IVC filter placement and also history of pulmonary embolism -Continue home dose coumadin of 2mg daily -INR slightly subtherapeutic at 1.8. Continue to monitor -Has been on intravenous heparin and Coumadin -INR is therapeutic -We will continue Coumadin to maintain INR between 2-3 (8) Hypertension: Elevated with SBP in 180s -Continue home lisinopril, IV Lasix -Add additional agents if indicated (9) Hyperlipidemia: Continue statin Statin dose has been increased DVT Ppx: Continue coumadin Code status: DNR per discussion with patient, family PCP: Romeo Dispo: Admitted to telemetry. Discussed with the daughter Subjective She is an 87-year-old female with a PMH of HTN, HLD, diastolic heart failure, dementia, recurrent UTI and history of DVT on Coumadin who presents from home with increased drowsiness starting this morning. 09/25 The patient was seen and examined in telemetry unit in presence of the daughter She has been more drowsy recently and especially this morning She denies any symptoms this morning except weakness Denies any chest pain, shortness of breath, palpitation, any abdominal pain, nausea and no vomiting. Denies any fever or chills. 09/26 The patient was seen and examined in presence of the daughter She has had sudden onset of right facial droop with right-sided weakness last night Stroke alert was called in and MRI of the brain did show new stroke She has been neglecting right side with right facial droop and right hemiplegia She has been responding to commands 09/27 The patient was seen and examined in telemetry unit in presence of the daughter Surprisingly she is doing much better today without any significant symptoms of right hemiplegia and dysphasia Has been communicating well Moving all limbs more or less equal No facial droop Physical Exam 2 Vital Signs (Past 24 Hours): Last Vital Signs Temp 36.4 C L 09/27/18 12:00 Pulse 85 09/27/18 07:30 Resp 20 09/27/18 12:00 BP 115/69 09/27/18 12:00 Pulse Ox 97 09/27/18 12:00 Constitutional: WD/WN, vitals as above Eyes: PERRL, conjunctivae normal, anicteric sclerae ENMT: external ear and nose normal, oropharynx normal Neck: trachea midline, no thyromegaly Respiratory: normal respiratory effort; no respiratory distress and no labored breathing Auscultation: + diminished lung sounds and + crackles ( Minimal bibasilar crackles) Cardiovascular: Rate/Rhythm: regular rate and regular rhythm Heart Sounds: normal S1 and normal S2 Gastrointestinal (Abdomen): Inspection/Auscultation: abdomen normal to inspection and normal bowel sounds Neurologic: awake and + confused Motor/Sensory: + abnormal movement ( Generally weak, may be weaker on the right side) Cranial Nerves: no nystagmus Results & Data Laboratory Results Short CBC 09/27/18 Range/Units 06:06 WBC 9.66 (4.8-10.8) K/uL Hgb 15.8 (12.0-16.0) g/dL Hct 47.3 H (37-47) % Plt Count 160 (130-400) K/uL BMP 09/27/18 06:06 Sodium 139 Potassium 3.9 Chloride 106 Carbon Dioxide 25 BUN 26 H Creatinine 0.93 Glucose 103 H Calcium 9.0 Medications Administered Current Inpatient Medications Acetaminophen (Tylenol) 650 mg PO Q4H PRN PRN Reason: Fever Stop: 10/24/18 23:04 Last Admin: 09/25/18 15:49 Dose: 650 mg Hydrocodone Bitart/Acetaminophen ([place] 5/325) 1 tab PO Q4H PRN PRN Reason: Pain Stop: 10/08/18 23:04 Last Admin: 09/25/18 08:25 Dose: 1 tab Atorvastatin Calcium (Lipitor) 20 mg PO HS [place] Stop: 10/25/18 20:59 Last Admin: 09/26/18 20:54 Dose: 20 mg Docusate Sodium (Colace) 100 mg PO DAILY [place] Stop: 10/25/18 08:59 Last Admin: 09/27/18 08:46 Dose: Not Given Gabapentin (Neurontin) 400 mg PO TID [place] Stop: 10/25/18 08:59 Last Admin: 09/25/18 19:14 Dose: Not Given Gadobutrol (Gadavist 65ml) 9 ml IV ONCE PRN PRN Reason: Interaction Checking Stop: 09/30/18 00:53 Last Admin: 09/26/18 00:54 Dose: 9 ml Haloperidol Lactate (Haldol) 2.5 mg IM Q6H PRN PRN Reason: Agitation Stop: 10/26/18 05:44 Doxycycline Hyclate 100 mg/ (Dextrose) 110 mls @ 50 mls/hr IV BID [facility] Stop: 10/02/18 14:59 Last Infusion: 09/27/18 11:41 Dose: Infused Lisinopril (Zestril) 40 mg PO QAM [place] Stop: 10/26/18 08:59 Last Admin: 09/27/18 08:45 Dose: 40 mg Metoprolol Tartrate (Lopressor) 12.5 mg PO BID [facility] Stop: 10/24/18 21:44 Last Admin: 09/27/18 08:45 Dose: 12.5 mg Miscellaneous (Order Awaiting Action) 1 ea N/A QS [facility] Stop: 10/25/18 00:00 Last Admin: 09/27/18 08:24 Dose: Not Given Miscellaneous Information (Pharmacist Discharge Med Rec Consult) 1 ea N/A UD PRN PRN Reason: Consult Stop: 10/25/18 21:01 Multivitamins (Multivitamin Tab) 1 tab PO DAILY [facility] Stop: 10/25/18 08:59 Last Admin: 09/27/18 08:45 Dose: 1 tab Pantoprazole Sodium (Protonix) 40 mg PO BID [facility] Stop: 10/25/18 08:59 Last Admin: 09/27/18 08:45 Dose: 40 mg Warfarin Sodium (Coumadin) 5 mg PO DAILY@1600 [facility] Stop: 10/25/18 15:59 Last Admin: 09/25/18 15:49 Dose: 5 mg _ (1) Change in mental status Altered mental status type: unspecified Coma depth: Coma timing: Qualified Code(s): R41.82 - Altered mental status, unspecified
--- NOTE | 2018-09-27 14:51 | Neurology Progress Note ---
Date of Service September 27, 2018 Assessment & Plan (1) Acute CVA (cerebrovascular accident): 1. MRI with internal capsule also questionable lesion in bone marrow , defer to primary care whether pt medical status warrants further eval. 2. currently on coumadin for DVT- s/p IVC filter 3. optimize HTN, DM, HLD - consider patients age 4. fall precautions 5. PT/OT/speech for discharge needs 6. no source of infection found 7. TTE- no ASD 8. palliative medicine involved for direction of care. 9. carotid no significant stenosis 10. narcotics high on labs no further neurologic work up needed at this time. will sign off for now call with questions or concerns. neurology as outpatient 4-6 weeks for any further work up of vascular dementia Discussed with DANNIE Grissom, agree with management as above. JIMMY Lai MD Supervising Physician Co-Signing Physician Notes I have discussed above patient with Dr Gricelda Lai, neurology Vishal Duong is an 87 year old female with a PMH- HTN, HLD, diastolic heart failure , vascular dementia know to our office, recurrent UTI and history of DVT on Coumadin who presents from home with increased drowsiness starting this morning. She lives in a mother in law suite in her daughter and son in laws home. She is fairly independent at baseline, making her own meals and her own laundry, She walks with a walker. She was more fatigued than usual and daughter was having difficulty waking her up. She fell asleep during lunch, and would open her eyes when prompted but seemed to remain lethargic. She was seen at her PCP for increased lower extremity swelling and had a 5 pounds weight gain since previous appointment. Swelling was attributed to patient keeping legs in dependent position over the past few days to be close to the radiator. Even though she was lethargic her daughter states she was taking her medications. Her blood pressure on admission was 170/76. denies sickness, falls, CP, SOB, + right sided weakness. she does have a chronic LLE foot drop, and a history of DVT and phlebitis. Today she is a little more alert but her family are not in the room. She still appears confused and is not oriented to place. Physical Exam 2 Vital Signs (Past 24 Hours): Last Vital Signs Temp 36.4 C L 09/27/18 12:00 Pulse 75 09/27/18 08:00 Resp 20 09/27/18 12:00 BP 115/69 09/27/18 12:00 Pulse Ox 97 09/27/18 12:00 Gen: alert to voice commend is not oriented to place, does not follow commands when asked if daughter was here she shakes her head "no" lungs: course breath sounds CV RRR right arm some movement with passive movement but no entry processor right leg movement with stimulation Results & Data Laboratory Results Abnormal lab results 09/24/18 09/27/18 09/27/18 Range/Units 19:08 06:06 06:06 Hct 47.3 H (37-47) % RDW Std Deviation 50.2 H (36.4-46.3) fL RDW Coeff of Sarah 14.8 H (11.5-14.5) % Neut # (Auto) 6.86 H (1.4-6.5) K/uL [place] # (Auto) 0.86 H (0.11-0.59) K/uL PT 41.5 H (9.0-12.0) Seconds INR 4.5 H (0.9-1.1) APTT 37.2 H (21.0-31.0) Seconds BUN (7-18) mg/dl BUN/Creatinine Ratio (10-20) Glucose (70-99) mg/dl Ur Hydrocodone (GC/MS) 391 A (CUTOFF=50) NG/ML Ur Norhydrocodone 610 A (CUTOFF=50) NG/ML Ur Hydromorphone (GC/MS) 73 A (CUTOFF=50) NG/ML 09/27/18 Range/Units 06:06 Hct (37-47) % RDW Std Deviation (36.4-46.3) fL RDW Coeff of Sarah (11.5-14.5) % Neut # (Auto) (1.4-6.5) K/uL [place] # (Auto) (0.11-0.59) K/uL PT (9.0-12.0) Seconds INR (0.9-1.1) APTT (21.0-31.0) Seconds BUN 26 H (7-18) mg/dl BUN/Creatinine Ratio 27.5 H (10-20) Glucose 103 H (70-99) mg/dl Ur Hydrocodone (GC/MS) (CUTOFF=50) NG/ML Ur Norhydrocodone (CUTOFF=50) NG/ML Ur Hydromorphone (GC/MS) (CUTOFF=50) NG/ML Diagnostic Findings no new imaging
[2018-09-27] MEDS: ATORVASTATIN 20 MG TAB PO SCH (20:10)
[2018-09-28] MEDS: RESTASIS~ORDER AWAITING ACTION SCH ×4 (02:11→22:56)
[2018-09-28 06:32] LABS: Basophils # (auto) 0.05 K/uL (0-0.2); Basophils % (auto) 0.5 %; Hematocrit (blood only) 46.7 % (37-47); Hemoglobin 15.2 g/dL (12.0-16.0); Immature Granulocytes # (auto) 0.03 K/uL (0.00-0.02); Immature Granulocytes % (auto) 0.3 %; Lymphocytes # (auto) 1.74 K/uL (1.2-3.4); Lymphocytes % (auto) 17.3 %; Mean Corpuscular Hgb Conc 32.5 g/dL (32-36); Mean Corpuscular Volume 93.8 fL (80-100); Mean Platelet Volume 9.6 fL (7.4-10.4); Monocytes # (auto) 0.99 K/uL (0.11-0.59); Monocytes % (auto) 9.8 %; Neutrophils # (auto) 6.75 K/uL (1.4-6.5); Neutrophils % (auto) 67.1 %; Platelet Count 163 K/uL (130-400); RDW Standard Deviation 50.9 fL (36.4-46.3); Red Blood Count 4.98 M/uL (4.2-5.4); White Blood Count 10.06 K/uL (4.8-10.8)
[2018-09-28 06:55] LABS: Partial Thromboplastin Ratio 1.5; Partial Thromboplastin Time 38.7 Seconds (21.0-31.0); Prothrombin Time 36.7 Seconds (9.0-12.0)
[2018-09-28 06:59] LABS: INR 3.9 (0.9-1.1)
[2018-09-28 07:09] LABS: BUN Creatinine Ratio 35.1 (10-20); Calcium 8.8 mg/dl (8.5-10.1); Creatinine Clr Calc Pharmacy 38.9 ml/min; Est GFR (African American) 57.6; Est GFR (Non-African American) 49.7; Magnesium 2.3 mg/dl (1.8-2.4); Potassium 3.9 mmol/L (3.5-5.1)
[2018-09-28] MEDS: MULTIVITAMIN TAB PO SCH ×2 (07:41→08:43)
[2018-09-28] MEDS: METOPROLOL TARTRATE 25 MG TAB PO SCH ×2 (07:41→20:37)
[2018-09-28] MEDS: LISINOPRIL 40 MG TAB PO SCH (07:41)
[2018-09-28] MEDS: PANTOprazole 40 MG TAB PO SCH ×2 (07:41→08:43)
[2018-09-28] MEDS: DOCUSATE SODIUM 100 MG CAP PO SCH (08:43)
[2018-09-28] MEDS: FLINTSTONES COMPLETE CHEWABLE TAB PO SCH (11:58)
[2018-09-28] MEDS: SENNA 8.6 MG TAB PO SCH (11:59)
[2018-09-28] MEDS: LANSOPRAZOLE 30 MG SOLTAB PO SCH (12:00)
--- NOTE | 2018-09-28 15:57 | Hospitalist Progress Note ---
Date of Service September 28, 2018 Assessment & Plan (1) Acute CVA (cerebrovascular accident): Stroke alert was called in last night (09/25) due to right facial droop and decreased movement of right sided extremities with dysarthria MRI of the brain showed 8 mm acute infarct within the left internal capsule and 5 mm acute infarct within the right external capsule. No mass effect. No hemorrhage. Carotid ultrasound has been negative for any significant obstruction Has been on Coumadin for history of DVT and the INR therapeutic Appreciate neurology input Appreciated palliative care input We will continue current medications for now Like to be transferred to hospice care or comfort care from tomorrow or day after Discussed with the daughter Clinically a lot better today without any significant symptoms of stroke Out of bed on a chair and communicating normally We will continue with PT and OT and possible placement Discussed with the daughter Remains stable-we will transfer to medical floor Continue PT and OT (2) Change in mental status: This is an 87-year-old female with a PMH of HTN, HLD, diastolic heart failure, dementia, recurrent UTI and history of DVT on Coumadin who presents from home with increased drowsiness starting this morning and was found to have decompensated diastolic heart failure. -Became noticably more lethargic in the morning of admission, family denies tayla confusion -CT head with chronic small vessel ischemic change. No acute intracranial abnormality -Lethargy multifactorial-CHF with low saturation, use of too much gabapentin and opioids, any infection has to be ruled out -Chest x-ray reviewed, has possible developing infiltrate -Doxycycline intravenously was started today -Discussed with the family members especially the daughter -Appreciate palliative care input and recommendation -We will continue current treatment with possible placement on discharge (3) Acute on chronic diastolic (congestive) heart failure: BLE edema, weight gain over past few weeks -Echo from Mar 2018 with EF: 61%, concentric LVH, no wall motion abnormality of LV, grade 1 diastolic dysfunction, mild AV stenosis -Given 40mg IV Lasix in ED -Low sodium diet, daily weights, strict I&Os -Appreciate cardiology input and recommendation No CHF Denies any shortness of breath We will continue current medications (4) Elevated troponin: Troponin elevated to 0.069 initially. Repeat pending -No chest pain or h/o IA -EKG without acute ischemic changes -Likely due to demand ischemia in setting of decompensated heart failure -Continue trending troponin, monitor on telemetry -no significant elevation of troponin to qualify ACS (5) GERD (gastroesophageal reflux disease): Continue PPI (6) Recurrent UTI: No evidence of infection We will discontinue home nitrofurantoin No evidence of infection now (7) DVT (deep venous thrombosis): H/o IVC filter placement and also history of pulmonary embolism -Continue home dose coumadin of 2mg daily -INR slightly subtherapeutic at 1.8. Continue to monitor -Has been on intravenous heparin and Coumadin -INR is therapeutic -We will continue Coumadin to maintain INR between 2-3 (8) Hypertension: Elevated with SBP in 180s -Continue home lisinopril, IV Lasix -Add additional agents if indicated (9) Hyperlipidemia: Continue statin Statin dose has been increased DVT Ppx: Continue coumadin Code status: DNR per discussion with patient, family PCP: Romeo Dispo: Admitted to telemetry. Discussed with the daughter Subjective She is an 87-year-old female with a PMH of HTN, HLD, diastolic heart failure, dementia, recurrent UTI and history of DVT on Coumadin who presents from home with increased drowsiness starting this morning. 09/25 The patient was seen and examined in telemetry unit in presence of the daughter She has been more drowsy recently and especially this morning She denies any symptoms this morning except weakness Denies any chest pain, shortness of breath, palpitation, any abdominal pain, nausea and no vomiting. Denies any fever or chills. 09/26 The patient was seen and examined in presence of the daughter She has had sudden onset of right facial droop with right-sided weakness last night Stroke alert was called in and MRI of the brain did show new stroke She has been neglecting right side with right facial droop and right hemiplegia She has been responding to commands 09/27 The patient was seen and examined in telemetry unit in presence of the daughter Surprisingly she is doing much better today without any significant symptoms of right hemiplegia and dysphasia Has been communicating well Moving all limbs more or less equal No facial droop 09/28 Remains stable Did not have any more episode of TIA Has been communicating well Denies any symptoms except weakness Physical Exam 2 Vital Signs (Past 24 Hours): Last Vital Signs Temp 36.9 C 09/28/18 14:59 Pulse 69 09/28/18 14:59 Resp 18 09/28/18 14:59 BP 122/70 09/28/18 14:59 Pulse Ox 94 09/28/18 14:59 Constitutional: WD/WN, vitals as above Eyes: PERRL, conjunctivae normal, anicteric sclerae ENMT: external ear and nose normal, oropharynx normal Neck: trachea midline, no thyromegaly Respiratory: normal respiratory effort; no respiratory distress and no labored breathing Auscultation: + diminished lung sounds and + crackles ( Minimal bibasilar crackles) Cardiovascular: Rate/Rhythm: regular rate and regular rhythm Heart Sounds: normal S1 and normal S2 Gastrointestinal (Abdomen): Inspection/Auscultation: abdomen normal to inspection and normal bowel sounds Neurologic: awake and + confused Cranial Nerves: no nystagmus Results & Data Laboratory Results Short CBC 09/28/18 Range/Units 06:09 WBC 10.06 (4.8-10.8) K/uL Hgb 15.2 (12.0-16.0) g/dL Hct 46.7 (37-47) % Plt Count 163 (130-400) K/uL BMP 09/28/18 06:09 Sodium 140 Potassium 3.9 Chloride 108 H Carbon Dioxide 26 BUN 35 H Creatinine 1.01 Glucose 108 H Calcium 8.8 Medications Administered Current Inpatient Medications Acetaminophen (Tylenol) 650 mg PO Q4H PRN PRN Reason: Fever Stop: 10/24/18 23:04 Last Admin: 09/25/18 15:49 Dose: 650 mg Hydrocodone Bitart/Acetaminophen ([place] 5/325) 1 tab PO Q4H PRN PRN Reason: Pain Stop: 10/08/18 23:04 Last Admin: 09/25/18 08:25 Dose: 1 tab Atorvastatin Calcium (Lipitor) 20 mg PO HS [place] Stop: 10/25/18 20:59 Last Admin: 09/27/18 20:10 Dose: 20 mg Gabapentin (Neurontin) 400 mg PO TID [place] Stop: 10/25/18 08:59 Last Admin: 09/25/18 19:14 Dose: Not Given Gadobutrol (Gadavist 65ml) 9 ml IV ONCE PRN PRN Reason: Interaction Checking Stop: 09/30/18 00:53 Last Admin: 09/26/18 00:54 Dose: 9 ml Haloperidol Lactate (Haldol) 2.5 mg IM Q6H PRN PRN Reason: Agitation Stop: 10/26/18 05:44 [facility]op[facility]) [facility] [place]: 10/28/18 08:59 Last Admin: 09/28/18 12:00 Dose: 30 mg Lisinopril (Zestril) 40 mg PO QAM [facility] Stop: 10/26/18 08:59 Last Admin: 09/28/18 07:41 Dose: 40 mg Metoprolol Tartrate (Lopressor) 12.5 mg PO BID [facility] Stop: 10/24/18 21:44 Last Admin: 09/28/18 07:41 Dose: 12.5 mg Miscellaneous (Order Awaiting Action) 1 ea N/A QS [facility] Stop: 10/25/18 00:00 Last Admin: 09/28/18 15:35 Dose: Not Given Miscellaneous (Pending Order) 1 ea N/A DAILY@1000 [facility] Stop: 10/28/18 09:59 Last Admin: 09/28/18 08:43 Dose: Not Given Miscellaneous Information (Pharmacist Discharge Med Rec Consult) 1 ea N/A UD PRN PRN Reason: Consult Stop: 10/25/18 21:01 Multivitamins/Folic Acid/Vitamin C (Flintstones Complete Chew Tab) [facility] [place] Stop: 10/28/18 08:59 Last Admin: 09/28/18 11:58 Dose: 1 tab Sennosides (Senokot) 17.2 mg [facility] [place] Stop: 10/28/18 08:59 Last Admin: 09/28/18 11:59 Dose: Not Given Warfarin Sodium (Coumadin) 2 mg PO DAILY@1600 [facility] Stop: 10/28/18 15:59 _ (1) Change in mental status Altered mental status type: unspecified Coma depth: Coma timing: Qualified Code(s): R41.82 - Altered mental status, unspecified
[2018-09-28] MEDS: ATORVASTATIN 20 MG TAB PO SCH (20:35)
[2018-09-28] MEDS: GABAPENTIN 400 MG CAP PO SCH (20:39)
[2018-09-29 06:07] LABS: Basophils # (auto) 0.06 K/uL (0-0.2); Basophils % (auto) 0.6 %; Eosinophils # (auto) 0.54 K/uL (0-0.5); Eosinophils % (auto) 5.6 %; Hematocrit (blood only) 44.4 % (37-47); Hemoglobin 14.5 g/dL (12.0-16.0); Immature Granulocytes # (auto) 0.03 K/uL (0.00-0.02); Immature Granulocytes % (auto) 0.3 %; Lymphocytes # (auto) 1.52 K/uL (1.2-3.4); Lymphocytes % (auto) 15.7 %; Mean Corpuscular Hgb Conc 32.7 g/dL (32-36); Mean Corpuscular Volume 94.3 fL (80-100); Mean Platelet Volume 9.5 fL (7.4-10.4); Monocytes # (auto) 0.93 K/uL (0.11-0.59); Monocytes % (auto) 9.6 %; Neutrophils % (auto) 68.2 %; Platelet Count 158 K/uL (130-400); RDW Standard Deviation 52.1 fL (36.4-46.3); Red Blood Count 4.71 M/uL (4.2-5.4); White Blood Count 9.68 K/uL (4.8-10.8)
[2018-09-29 06:43] LABS: BUN Creatinine Ratio 43.1 (10-20); Calcium 8.7 mg/dl (8.5-10.1); Creatinine Clr Calc Pharmacy 34.3 ml/min; Est GFR (African American) 49.2; Est GFR (Non-African American) 42.4; Potassium 3.7 mmol/L (3.5-5.1)
[2018-09-29 07:02] LABS: Partial Thromboplastin Ratio 1.2; Partial Thromboplastin Time 30.4 Seconds (21.0-31.0)
[2018-09-29] MEDS: LANSOPRAZOLE 30 MG SOLTAB PO SCH (07:50)
[2018-09-29] MEDS: LISINOPRIL 40 MG TAB PO SCH (07:50)
[2018-09-29] MEDS: SENNA 8.6 MG TAB PO SCH (07:51)
[2018-09-29] MEDS: METOPROLOL TARTRATE 25 MG TAB PO SCH ×2 (07:52→20:20)
[2018-09-29] MEDS: FLINTSTONES COMPLETE CHEWABLE TAB PO SCH (07:52)
[2018-09-29] MEDS: GABAPENTIN 400 MG CAP PO SCH ×2 (08:01→15:01)
[2018-09-29 09:42] LABS: INR 1.9 (0.9-1.1); Prothrombin Time 18.9 Seconds (9.0-12.0)
[2018-09-29] MEDS: RESTASIS~ORDER AWAITING ACTION SCH (09:49)
[2018-09-29] MEDS: ACETAMINOPHEN 325 MG TAB PO PRN (11:21)
[2018-09-29] MEDS ORDERED: WARFARIN SOD 2 MG TAB PO SCH (16:00)
[2018-09-29] MEDS: WARFARIN SOD 2 MG TAB PO SCH (16:03)
--- NOTE | 2018-09-29 16:55 | Hospitalist Progress Note ---
Date of Service September 29, 2018 Assessment & Plan (1) Acute CVA (cerebrovascular accident): right sided weakness has improved BP stable patient remains drowsy repeat CT head today for ff up check EKG continue coumadin, lipitor PT/OT eval anticipate d/c to SNF when accepted (2) Change in mental status: patient somewhat drowsy but then became alert , follows commands during exam repeat CT head for ff up (3) Acute on chronic diastolic (congestive) heart failure: appears euvolemic today (4) Elevated troponin: Likely due to demand ischemia in setting of decompensated heart failure --no significant elevation of troponin to qualify ACS (5) GERD (gastroesophageal reflux disease): Continue PPI (6) Recurrent UTI: no signs of infection (7) DVT (deep venous thrombosis): H/o IVC filter placement and also history of pulmonary embolism INR 1.9 continue coumadin (8) Hypertension: stable overall continue Lisinopril and Metoprolol (9) Hyperlipidemia: Continue statin Statin dose has been increased DVT Ppx: Continue coumadin Code status: DNR per discussion with patient, family PCP: Romeo Dispo: Admitted to telemetry. Discussed with the daughter Subjective ff up for CVA seen resting in bed, sleeping but easily awakened seemed to be somewhat drowsy per family she was able to have breakfast and lunch tolerated well able to say more words, respond able to use right arm more no other symptoms Physical Exam 2 Vital Signs (Past 24 Hours): Last Vital Signs Temp 36.4 C L 09/29/18 15:20 Pulse 62 09/29/18 15:20 Resp 16 09/29/18 15:20 BP 121/66 09/29/18 15:20 Pulse Ox 91 09/29/18 15:20 Physical Exam: General- oriented x 2, not in distress, speaks in sentences with no effort or accessory muscle use Eyes- anicteric Neck- no JVD Lungs- clear breath sounds bilaterally, no rales/wheezes Heart- normal rate, regular rhythm; Grade 3/6 murmur Abdomen- normal bowel sounds, nondistended, soft, nontender Extremities- no pretibial edema, no calf tenderness Neuro- somewhat drowsy, oriented x 2 right side 4/5 , left 5/5 motor strength no other focal neuro symptoms Skin- warm & dry Results & Data Laboratory Results Laboratory Results - last 24 hr 0209/29/18 09/29/18 05:35 05:35 05:35 WBC 9.68 RBC 4.71 Hgb 14.5 Hct 44.4 MCV 94.3 MCH 30.8 MCHC 32.7 RDW Std Deviation 52.1 H RDW Coeff of Sarah 15.0 H Plt Count 158 MPV 9.5 Immature Gran % (Auto) 0.3 Neut % (Auto) 68.2 Lymph % (Auto) 15.7 [place] % (Auto) 9.6 Eos % (Auto) 5.6 Baso % (Auto) 0.6 Immature Gran # (Auto) 0.03 H Neut # (Auto) 6.60 H Lymph # (Auto) 1.52 [place] # (Auto) 0.93 H Eos # (Auto) 0.54 H Baso # (Auto) 0.06 PT INR APTT 30.4 PTT Ratio 1.2 Sodium 143 Potassium 3.7 Chloride 112 H Carbon Dioxide 26 Anion Gap 5.0 BUN 50 H Creatinine 1.15 Est Cr Clr Drug Dosing 34.3 Est GFR ( Amer) 49.2 Est GFR (Non-Af Amer) 42.4 BUN/Creatinine Ratio 43.1 H Glucose 109 H Calcium 8.7 09/29/18 05:35 WBC RBC Hgb Hct MCV MCH MCHC RDW Std Deviation RDW Coeff of Sarah Plt Count MPV Immature Gran % (Auto) Neut % (Auto) Lymph % (Auto) [place] % (Auto) Eos % (Auto) Baso % (Auto) Immature Gran # (Auto) Neut # (Auto) Lymph # (Auto) [place] # (Auto) Eos # (Auto) Baso # (Auto) PT 18.9 H INR 1.9 H APTT PTT Ratio Sodium Potassium Chloride Carbon Dioxide Anion Gap BUN Creatinine Est Cr Clr Drug Dosing Est GFR ( Amer) Est GFR (Non-Af Amer) BUN/Creatinine Ratio Glucose Calcium _ (1) Change in mental status Altered mental status type: unspecified Coma depth: Coma timing: Qualified Code(s): R41.82 - Altered mental status, unspecified
--- NOTE | 2018-09-29 18:05 | CT Scan Report ---
CT OF THE HEAD WITHOUT CONTRAST CLINICAL HISTORY: drowsiness, cva, ff up COMPARISON STUDY: Head CT and MRI of the brain September 25, 2018. CT DOSE: 749.40 mGy.cm TECHNIQUE: Helical axial images of the head were obtained without IV contrast. Automated exposure con trol was utilized for the study. A dose lowering technique was utilized adhering to the principles o f ALARA. FINDINGS: No acute intracranial hemorrhage, midline shift or mass effect is present. Ventricular syst em is stable. The basilar cisterns are patent. There are no extra-axial collections. White matter hyp odensities suggest extensive small vessel disease. A 1.7 cm hypodensity within the left internal caps ule has increased in extent since MRI of September 25, 2018. The additional small infarct within the ri ght external capsule on that MRI is not well visualized on this exam. Otherwise, the appearance of th e brain is unchanged. There is no calvarial fracture. The left frontal bone lesion shown on MRI of [facility] 2018 is not visualized, likely due to technique. IMPRESSION: 1. Increase in extent of a 1.7 cm acute infarct within the left internal capsule since MRI September. No significant mass effect. No hemorrhage. 2. The additional small infarct within the right external capsule on previous MRI is not well visuali zed on this exam, likely due to technique. Electronically signed by: Naun Horne M.D. 09/29/2018 6:04 PM
[2018-09-29 18:49] LABS: HCO3 ABG 27 mmol/L (19-24); Oxygen Saturation ABG 96.1 % (90-95); PCO2 ABG 41 mmHg (35-46); PO2 ABG 80 mm/Hg (80-95); pH ABG 7.43 (7.35-7.45)
[2018-09-29 18:50] LABS: Allen Test Pos (Pos)
[2018-09-29] MEDS: CYCLOSPORINE OP SCH (20:19)
[2018-09-29] MEDS: ATORVASTATIN 20 MG TAB PO SCH (20:22)
[2018-09-30 06:28] LABS: Hematocrit (blood only) 46.6 % (37-47); Hemoglobin 14.6 g/dL (12.0-16.0); Mean Corpuscular Hgb Conc 31.3 g/dL (32-36); Mean Corpuscular Volume 95.9 fL (80-100); Platelet Count 170 K/uL (130-400); RDW Coefficient of Variation 15.1 % (11.5-14.5); RDW Standard Deviation 53.2 fL (36.4-46.3); Red Blood Count 4.86 M/uL (4.2-5.4); White Blood Count 8.73 K/uL (4.8-10.8)
[2018-09-30] MEDS: METOPROLOL TARTRATE 25 MG TAB PO SCH ×2 (07:26→20:03)
[2018-09-30] MEDS: SENNA 8.6 MG TAB PO SCH (07:27)
[2018-09-30] MEDS: LANSOPRAZOLE 30 MG SOLTAB PO SCH (07:27)
[2018-09-30] MEDS: MICONAZOLE NITRATE POWDER 43 GM EXT PRN (07:27)
[2018-09-30] MEDS: LISINOPRIL 40 MG TAB PO SCH (07:27)
[2018-09-30] MEDS: FLINTSTONES COMPLETE CHEWABLE TAB PO SCH (07:27)
[2018-09-30] MEDS: CYCLOSPORINE OP SCH ×2 (07:28→20:04)
--- NOTE | 2018-09-30 10:40 | Palliative Care Progress Note ---
Date of Service September 30, 2018 Assessment & Plan (1) Goals of care, counseling/discussion: -87 year old female patient with PMH vascular dementia, chronic diastolic heart failure, GERD, chronic back pain, PE/DVT, recurrent UTI, and others, presented with altered mental status. Initial workup for infection was negative. 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 -CT head on 09/29 showed increase in size of left internal capsule infarct. No signs of infection-- vs normal, afebrile, wbc normal, etc. -Patient remains confused with expressive aphasia. Right facial droop remains, right arm weakness resolved. -Uncertain of rehab potential, but [facility] -If patient does not improve at rehab, would recommend [facility] SNF stay or 24/ 7 care at home with hospice. If she does improve, she might be able to go back rudy to her in-law suite with some increased care. Her daughter, Elida, is involved in her care and decision making. -Overarching goal is for comfort. (2) Change in mental status: (3) Acute on chronic diastolic (congestive) heart failure: (4) Chronic back pain: (5) Recurrent UTI: Subjective Patient is awake, alert and oriented to person only. See A&P. Review of Systems Unobtainable due to cognitive status Physical Exam 2 Vital Signs (Past 24 Hours): Last Vital Signs Temp 36.4 C L 09/30/18 07:12 Pulse 62 09/30/18 07:12 Resp 20 09/30/18 07:12 BP 143/65 H 09/30/18 07:12 Pulse Ox 96 09/30/18 07:12 Constitutional: + obese and comfortable; no acute distress ENMT: Ears: no hearing impairment Neck: normal visual inspection and trachea midline Respiratory: normal respiratory effort; no respiratory distress and no labored breathing Auscultation: lungs clear to auscultation bilaterally and + diminished lung sounds (bases) Cardiovascular: Rate/Rhythm: regular rate and regular rhythm Heart Sounds: normal S1 and normal S2 Vessels: dorsalis pedis pulses present; no JVD Extremities: no edema (trace non-pitting edema to BLE) Gastrointestinal (Abdomen): Inspection/Auscultation: abdomen normal to inspection, + abdomen distended (obesely distended, but soft) and normal bowel sounds Percussion/Palpation: abdomen nontender Musculoskeletal: Extremities: strength 5/5 throughout (no right arm weakness) Neurologic: awake and + confused Speech / Cognition: + expressive aphasia Cranial Nerves: + abnormal facial strength (right facial droop) Psychiatric: Orientation: alert, oriented to person, oriented to place and cooperative; + not oriented to time Time Spent Midlevel 25 minutes with >50% of time spent at bedside with patient discussing condition and plan of care as well as collaborating with nursing staff and case management to coordinate care. _ (1) Change in mental status Altered mental status type: unspecified Coma depth: Coma timing: Qualified Code(s): R41.82 - Altered mental status, unspecified
[2018-09-30] MEDS: WARFARIN SOD 2 MG TAB PO SCH (15:14)
--- NOTE | 2018-09-30 16:52 | Hospitalist Progress Note ---
Date of Service September 30, 2018 Assessment & Plan (1) Acute CVA (cerebrovascular accident): Stroke alert was called in last night (09/25) due to right facial droop and decreased movement of right sided extremities with dysarthria MRI of the brain showed 8 mm acute infarct within the left internal capsule and 5 mm acute infarct within the right external capsule. No mass effect. No hemorrhage. Carotid ultrasound has been negative for any significant obstruction Has been on Coumadin for history of DVT and the INR therapeutic Appreciate neurology input Appreciated palliative care input and recommendation with ongoing follow-up. We will continue current medications for now Like to be transferred to hospice care or comfort care from tomorrow or day after Discussed with the daughter Clinically a lot better today without any significant symptoms of stroke Out of bed on a chair and communicating normally We will continue with PT and OT and possible placement Discussed with the daughter Remains stable-we will transfer to medical floor Continue PT and OT Has episodic attack of neurological symptoms Will need placement on stabilization (2) Change in mental status: This is an 87-year-old female with a PMH of HTN, HLD, diastolic heart failure, dementia, recurrent UTI and history of DVT on Coumadin who presents from home with increased drowsiness starting this morning and was found to have decompensated diastolic heart failure. -Became noticably more lethargic in the morning of admission, family denies tayla confusion -CT head with chronic small vessel ischemic change. No acute intracranial abnormality -Lethargy multifactorial-CHF with low saturation, use of too much gabapentin and opioids, any infection has to be ruled out -Chest x-ray reviewed, has possible developing infiltrate -Doxycycline intravenously was started today -Discussed with the family members especially the daughter -Appreciate palliative care input and recommendation -We will continue current treatment with possible placement on discharge -Remains stable and the confusion is improved (3) Acute on chronic diastolic (congestive) heart failure: BLE edema, weight gain over past few weeks -Echo from Mar 2018 with EF: 61%, concentric LVH, no wall motion abnormality of LV, grade 1 diastolic dysfunction, mild AV stenosis -Given 40mg IV Lasix in ED -Low sodium diet, daily weights, strict I&Os -Appreciate cardiology input and recommendation No CHF Denies any shortness of breath We will continue current medications (4) Elevated troponin: Troponin elevated to 0.069 initially. Repeat pending -No chest pain or h/o [place] -EKG without acute ischemic changes -Likely due to demand ischemia in setting of decompensated heart failure -Continue trending troponin, monitor on telemetry -no significant elevation of troponin to qualify ACS -No arrhythmias noted -Has been transferred to medical floor to continue care (5) GERD (gastroesophageal reflux disease): Continue PPI (6) Recurrent UTI: No evidence of infection We will discontinue home nitrofurantoin No evidence of infection now (7) DVT (deep venous thrombosis): H/o IVC filter placement and also history of pulmonary embolism -Continue home dose coumadin of 2mg daily -INR slightly subtherapeutic at 1.8. Continue to monitor -Has been on intravenous heparin and Coumadin -INR is therapeutic -We will continue Coumadin to maintain INR between 2-3 (8) Hypertension: Elevated with SBP in 180s -Continue home lisinopril, IV Lasix -Add additional agents if indicated (9) Hyperlipidemia: Continue statin Statin dose has been increased DVT Ppx: Continue coumadin Code status: DNR per discussion with patient, family PCP: Romeo Dispo: Admitted to telemetry. Discussed with the daughter Continue PT OT evaluation Likely to need placement on discharge Subjective She is an 87-year-old female with a PMH of HTN, HLD, diastolic heart failure, dementia, recurrent UTI and history of DVT on Coumadin who presents from home with increased drowsiness starting this morning. 09/25 The patient was seen and examined in telemetry unit in presence of the daughter She has been more drowsy recently and especially this morning She denies any symptoms this morning except weakness Denies any chest pain, shortness of breath, palpitation, any abdominal pain, nausea and no vomiting. Denies any fever or chills. 09/26 The patient was seen and examined in presence of the daughter She has had sudden onset of right facial droop with right-sided weakness last night Stroke alert was called in and MRI of the brain did show new stroke She has been neglecting right side with right facial droop and right hemiplegia She has been responding to commands 09/27 The patient was seen and examined in telemetry unit in presence of the daughter Surprisingly she is doing much better today without any significant symptoms of right hemiplegia and dysphasia Has been communicating well Moving all limbs more or less equal No facial droop 09/28 Remains stable Did not have any more episode of TIA Has been communicating well Denies any symptoms except weakness 09/30 Patient was seen and examined in medical floor Remains generally weak and lethargic Has had an episode of strokelike symptoms again yesterday None observed during the examination Physical Exam 2 Vital Signs (Past 24 Hours): Last Vital Signs Temp 36.7 C 09/30/18 15:01 Pulse 64 09/30/18 15:01 Resp 16 09/30/18 15:01 BP 128/71 09/30/18 15:01 Pulse Ox 94 09/30/18 15:01 Physical Exam: Out of bed when a chair without any significant symptoms Constitutional: WD/WN, vitals as above Eyes: PERRL, conjunctivae normal, anicteric sclerae ENMT: external ear and nose normal, oropharynx normal Neck: trachea midline, no thyromegaly Respiratory: normal respiratory effort; no respiratory distress and no labored breathing Auscultation: + diminished lung sounds and + crackles ( Minimal bibasilar crackles) Cardiovascular: Rate/Rhythm: regular rate and regular rhythm Heart Sounds: normal S1 and normal S2 Gastrointestinal (Abdomen): Inspection/Auscultation: abdomen normal to inspection and normal bowel sounds Neurologic: awake and + confused Cranial Nerves: no nystagmus Generally very weak and lethargic without any focal paralysis or paresis Results & Data Laboratory Results Short CBC 09/30/18 Range/Units 05:18 WBC 8.73 (4.8-10.8) K/uL Hgb 14.6 (12.0-16.0) g/dL Hct 46.6 (37-47) % Plt Count 170 (130-400) K/uL Medications Administered Current Inpatient Medications Acetaminophen (Tylenol) 650 mg PO Q4H PRN PRN Reason: Fever Stop: 10/24/18 23:04 Last Admin: 09/29/18 11:21 Dose: 650 mg Hydrocodone Bitart/Acetaminophen ([place] 5/325) 1 tab PO Q4H PRN PRN Reason: Pain Stop: 10/08/18 23:04 Last Admin: 09/25/18 08:25 Dose: 1 tab Atorvastatin Calcium (Lipitor) 20 mg PO HS [facility] Stop: 10/25/18 20:59 Last Admin: 09/29/18 20:22 Dose: Not Given Cyclosporine (Restasis) 1 drops OP BID [facility] Stop: 10/29/18 20:59 Last Admin: 09/30/18 07:28 Dose: 1 drops Gabapentin (Neurontin) 400 mg PO TID [facility] Stop: 10/25/18 08:59 Last Admin: 09/29/18 15:01 Dose: 400 mg Haloperidol Lactate (Haldol) 2.5 mg IM Q6H PRN PRN Reason: Agitation Stop: 10/26/18 05:44 Lansoprazole (Prevacid) 30 mg PO [facility] Stop: 10/28/18 08:59 Last Admin: 09/30/18 07:27 Dose: 30 mg Lisinopril (Zestril) 40 mg PO [facility] Stop: 10/26/18 08:59 Last Admin: 09/30/18 07:27 Dose: 40 mg Metoprolol Tartrate (Lopressor) 12.5 mg PO BID [facility] Stop: 10/24/18 21:44 Last Admin: 09/30/18 07:26 Dose: 12.5 mg Miconazole Nitrate (Desenex) 1 appln EXT PRN PRN PRN Reason: Affected Skin Folds Stop: 10/29/18 10:21 Last Admin: 09/30/18 07:27 Dose: 1 appln Multivitamins/Folic Acid/Vitamin C (Flintstones Complete Chew Tab) 1 tab PO [facility] Stop: 10/28/18 08:59 Last Admin: 09/30/18 07:27 Dose: 1 tab Sennosides (Senokot) 17.2 mg PO [facility] Stop: 10/28/18 08:59 Last Admin: 09/30/18 07:27 Dose: 17.2 mg Warfarin Sodium (Coumadin) 2 mg PO DAILY@1600 [facility] Stop: 10/28/18 15:59 Last Admin: 09/30/18 15:14 Dose: 2 mg _ (1) Change in mental status Altered mental status type: unspecified Coma depth: Coma timing: Qualified Code(s): R41.82 - Altered mental status, unspecified
[2018-09-30] MEDS: ATORVASTATIN 20 MG TAB PO SCH (20:03)
[2018-10-01 07:04] LABS: INR 1.4 (0.9-1.1); Prothrombin Time 13.7 Seconds (9.0-12.0)
[2018-10-01 07:24] LABS: BUN Creatinine Ratio 49.5 (10-20); Creatinine Clr Calc Pharmacy 44.9 ml/min; Est GFR (African American) 68.9; Est GFR (Non-African American) 59.5; Potassium 3.8 mmol/L (3.5-5.1)
[2018-10-01] MEDS: CYCLOSPORINE OP SCH (08:02)
[2018-10-01] MEDS: LANSOPRAZOLE 30 MG SOLTAB PO SCH (08:03)
[2018-10-01] MEDS: METOPROLOL TARTRATE 25 MG TAB PO SCH (08:03)
[2018-10-01] MEDS: LISINOPRIL 40 MG TAB PO SCH (08:03)
[2018-10-01] MEDS: FLINTSTONES COMPLETE CHEWABLE TAB PO SCH (08:03)
[2018-10-01] MEDS: SENNA 8.6 MG TAB PO SCH (08:04)
[2018-10-01] MEDS: MICONAZOLE NITRATE POWDER 43 GM EXT PRN (08:04)
--- NOTE | 2018-10-01 12:12 | Hospitalist Progress Note ---
Date of Service October 01, 2018 Assessment & Plan (1) Acute CVA (cerebrovascular accident): Stroke alert was called in last night (09/25) due to right facial droop and decreased movement of right sided extremities with dysarthria MRI of the brain showed 8 mm acute infarct within the left internal capsule and 5 mm acute infarct within the right external capsule. No mass effect. No hemorrhage. Carotid ultrasound has been negative for any significant obstruction Has been on Coumadin for history of DVT and the INR therapeutic Appreciate neurology input Appreciated palliative care input and recommendation with ongoing follow-up. We will continue current medications for now Like to be transferred to hospice care or comfort care from tomorrow or day after Discussed with the daughter Clinically a lot better today without any significant symptoms of stroke Out of bed on a chair and communicating normally We will continue with PT and OT and possible placement Remains stable in medical floor Has had occupational strokelike symptoms but none for the last 24-48 hours Appreciate palliative care input and recommendation She will be transferred to [facility] this afternoon Depending on her condition she may be transferred to hospice care at [facility] for at home (2) Change in mental status: This is an 87-year-old female with a PMH of HTN, HLD, diastolic heart failure, dementia, recurrent UTI and history of DVT on Coumadin who presents from home with increased drowsiness starting this morning and was found to have decompensated diastolic heart failure. -Became noticably more lethargic in the morning of admission, family denies tayla confusion -CT head with chronic small vessel ischemic change. No acute intracranial abnormality -Lethargy multifactorial-CHF with low saturation, use of too much gabapentin and opioids, any infection has to be ruled out -Chest x-ray reviewed, has possible developing infiltrate -Doxycycline intravenously was started today -Discussed with the family members especially the daughter -Appreciate palliative care input and recommendation -We will continue current treatment with possible placement on discharge -Remains stable and the confusion is improved (3) Acute on chronic diastolic (congestive) heart failure: BLE edema, weight gain over past few weeks -Echo from Mar 2018 with EF: 61%, concentric LVH, no wall motion abnormality of LV, grade 1 diastolic dysfunction, mild AV stenosis -Given 40mg IV Lasix in ED -Low sodium diet, daily weights, strict I&Os -Appreciate cardiology input and recommendation No CHF Denies any shortness of breath Remains stable (4) Elevated troponin: Troponin elevated to 0.069 initially. Repeat pending -No chest pain or h/o [place] -EKG without acute ischemic changes -Likely due to demand ischemia in setting of decompensated heart failure -Continue trending troponin, monitor on telemetry -no significant elevation of troponin to qualify ACS -No arrhythmias noted -Has been transferred to medical floor to continue care (5) GERD (gastroesophageal reflux disease): Continue PPI (6) Recurrent UTI: No evidence of infection We will discontinue home nitrofurantoin No evidence of infection now (7) DVT (deep venous thrombosis): H/o IVC filter placement and also history of pulmonary embolism -Continue home dose coumadin of 2mg daily -INR slightly subtherapeutic at 1.8. Continue to monitor -Has been on intravenous heparin and Coumadin -INR is therapeutic -We will continue Coumadin to maintain INR between 2-3 INR is 1.4 today, will give double the dose of Coumadin today (8) Hypertension: Elevated with SBP in 180s -Continue home lisinopril, IV Lasix -Add additional agents if indicated (9) Hyperlipidemia: Continue statin Statin dose has been increased DVT Ppx: Continue coumadin Code status: DNR per discussion with patient, family PCP: Romeo Dispo: Admitted to telemetry. She will be transferred to [facility] this afternoon Discussed in detail with the daughter who is in agreement Appreciate palliative care input and recommendation May need to be transferred to hospice care down the line Subjective She is an 87-year-old female with a PMH of HTN, HLD, diastolic heart failure, dementia, recurrent UTI and history of DVT on Coumadin who presents from home with increased drowsiness starting this morning. 09/25 The patient was seen and examined in telemetry unit in presence of the daughter She has been more drowsy recently and especially this morning She denies any symptoms this morning except weakness Denies any chest pain, shortness of breath, palpitation, any abdominal pain, nausea and no vomiting. Denies any fever or chills. 09/26 The patient was seen and examined in presence of the daughter She has had sudden onset of right facial droop with right-sided weakness last night Stroke alert was called in and MRI of the brain did show new stroke She has been neglecting right side with right facial droop and right hemiplegia She has been responding to commands 09/27 The patient was seen and examined in telemetry unit in presence of the daughter Surprisingly she is doing much better today without any significant symptoms of right hemiplegia and dysphasia Has been communicating well Moving all limbs more or less equal No facial droop 09/28 Remains stable Did not have any more episode of TIA Has been communicating well Denies any symptoms except weakness 09/30 Patient was seen and examined in medical floor Remains generally weak and lethargic Has had an episode of strokelike symptoms again yesterday None observed during the examination 10/01 The patient was seen and examined in presence of the daughter She remains lethargic but without any acute distress Denies any symptoms Will be transferred to [facility] this afternoon Physical Exam 2 Vital Signs (Past 24 Hours): Last Vital Signs Temp 36.9 C 10/01/18 07:33 Pulse 68 10/01/18 07:33 Resp 15 10/01/18 07:33 BP 147/65 H 10/01/18 07:33 Pulse Ox 93 10/01/18 07:33 Physical Exam: Lying in bed comfortably Constitutional: WD/WN, vitals as above Eyes: PERRL, conjunctivae normal, anicteric sclerae ENMT: external ear and nose normal, oropharynx normal Neck: trachea midline, no thyromegaly Respiratory: normal respiratory effort; no respiratory distress and no labored breathing Auscultation: + diminished lung sounds and + crackles ( Minimal bibasilar crackles) Cardiovascular: Rate/Rhythm: regular rate and regular rhythm Heart Sounds: normal S1 and normal S2 Gastrointestinal (Abdomen): Inspection/Auscultation: abdomen normal to inspection and normal bowel sounds Neurologic: awake and + confused Speech / Cognition: + abnormal speech, + expressive aphasia and + receptive aphasia Motor/Sensory: + abnormal movement (Generally weak, may be weaker on the right side) Cranial Nerves: no nystagmus Results & Data Laboratory Results [facility] 10/01/18 06:16 Sodium 145 Potassium 3.8 Chloride 113 H Carbon Dioxide 26 BUN 43 H Creatinine 0.87 Glucose 104 H Calcium 9.0 Medications Administered Current Inpatient Medications Acetaminophen (Tylenol) 650 mg PO Q4H PRN PRN Reason: Fever Stop: 10/24/18 23:04 Last Admin: 09/29/18 11:21 Dose: 650 mg Hydrocodone Bitart/Acetaminophen ([place] 5/325) 1 tab PO Q4H PRN PRN Reason: Pain Stop: 10/08/18 23:04 Last Admin: 09/25/18 08:25 Dose: 1 tab Atorvastatin Calcium (Lipitor) 20 mg PO HS [facility] Stop: 10/25/18 20:59 Last Admin: 09/30/18 20:03 Dose: 20 mg Cyclosporine (Restasis) 1 drops OP BID [facility] Stop: 10/29/18 20:59 Last Admin: 10/01/18 08:02 Dose: 1 drops Gabapentin (Neurontin) 400 mg PO TID [facility] Stop: 10/25/18 08:59 Last Admin: 09/29/18 15:01 Dose: 400 mg Haloperidol Lactate (Haldol) 2.5 mg IM Q6H PRN PRN Reason: Agitation Stop: 10/26/18 05:44 [facility]: 10/28/18 08:59 Last Admin: 10/01/18 08:03 Dose: 30 mg Lisinopril (Zestril) 40 mg PO [facility] Stop: 10/26/18 08:59 Last Admin: 10/01/18 08:03 Dose: 40 mg Metoprolol Tartrate (Lopressor) 12.5 mg PO BID [facility] Stop: 10/24/18 21:44 Last Admin: 10/01/18 08:03 Dose: 12.5 mg Miconazole Nitrate (Desenex) 1 appln EXT PRN PRN PRN Reason: Affected Skin Folds Stop: 10/29/18 10:21 Last Admin: 10/01/18 08:04 Dose: 1 appln Multivitamins/Folic Acid/Vitamin C (Flintstones Complete Chew Tab) [facility] Stop: 10/28/18 08:59 Last Admin: 10/01/18 08:03 Dose: 1 tab Sennosides (Senokot) [facility] [place]: 10/28/18 08:59 Last Admin: 10/01/18 08:04 Dose: Not Given Warfarin Sodium (Coumadin) 2 mg PO DAILY@1600 [facility] Stop: 10/28/18 15:59 Last Admin: 09/30/18 15:14 Dose: 2 mg Warfarin Sodium (Coumadin) 4 mg PO DAILY@1600 [facility] Stop: 10/01/18 16:01 _ (1) Change in mental status Altered mental status type: unspecified Coma depth: Coma timing: Qualified Code(s): R41.82 - Altered mental status, unspecified
[2018-10-01] MEDS ORDERED: WARFARIN SOD 4 MG TAB PO ONE ×2 (13:00→16:00)
--- NOTE | 2018-10-01 16:31 | Discharge Summary ---
Date of Service October 01, 2018 Admission HPI Per Admitting Provider This is an 87-year-old female with a PMH of HTN, HLD, diastolic heart failure, dementia, recurrent UTI and history of DVT on Coumadin who presents from home with increased drowsiness starting this morning. Patient lives with family members and was noted to be at baseline yesterday. From at 10 AM onward, patient seemed more fatigued than usual and daughter was having difficulty waking her up. Patient fell asleep during lunch, and would open her eyes when prompted but seemed to remain lethargic. Was brought into ED for further evaluation. Patient was seen in clinic yesterday for increased lower extremity swelling. Was told that she had gained 5 pounds since previous appointment. Swelling was attributed to patient keeping legs in dependent position over the past few days to be close to the radiator. Family feels that patient is more fatigued than usual but not confused. Denies fever, chills, lightheadedness, chest pain, palpitations, shortness of breath, nausea, vomiting, abdominal pain, dysuria, constipation, diarrhea or weakness. Patient takes nitrofurantoin for recurrent UTIs and is on Coumadin for history of DVTs. Takes Straughn and gabapentin for chronic back pain and did not take dose today at 1400, per daughter. Has history of multiple mini strokes. Admission Exam Per Admitting Provider Vital Signs (Past 24 Hours): Last Vital Signs Temp 36.9 C 09/24/18 17:12 Pulse 75 09/24/18 20:28 Resp 20 09/24/18 20:28 BP 180/74 H 09/24/18 20:28 Pulse Ox 96 09/24/18 20:28 Physical Exam: General Appearance: WD/WN, no apparent distress, pleasant and cooperative Head: normocephalic, atraumatic Eyes: normal inspection, PERRL, EOMI ENT: hearing grossly normal, pharynx normal (moist mucous membranes) Neck: supple, no JVD, no adenopathy Respiratory/Chest: Bibasilar crackles. No wheezes or rhonci. No respiratory distress or accessory muscle use Cardiovascular: regular rate, rhythm, systolic murmur, normal peripheral pulses , 1-2+ BLE edema Abdomen/GI: normal bowel sounds, soft, non-tender to palpation Extremities/Musculoskelatal: normal inspection, no calf tenderness, normal capillary refill, no pedal edema Neurologic/Psych: alert, normal mood/affect, oriented x 3 Skin: normal color, warm/dry Principal Diagnosis Acute CVA:8 mm acute infarct within the left internal capsule and 5 mm acute infarct within the right external capsule, diastolic heart failure, hypertension , generalized weakness Discharge Exam Constitutional WD/WN, vitals as above Eyes PERRL, conjunctivae normal, anicteric sclerae ENMT external ear and nose normal, oropharynx normal Neck trachea midline, no thyromegaly Respiratory normal respiratory effort; no respiratory distress and no labored breathing Auscultation: + diminished lung sounds and + crackles (Minimal bibasilar crackles) Cardiovascular Rate/Rhythm: regular rate and regular rhythm Heart Sounds: normal S1 and normal S2 Gastrointestinal (Abdomen) Inspection/Auscultation: abdomen normal to inspection and normal bowel sounds Neurologic awake and + confused Speech / Cognition: + abnormal speech, + expressive aphasia and + receptive aphasia Motor/Sensory: + abnormal movement (Generally weak, may be weaker on the right side) Cranial Nerves: no nystagmus Discharge Data Allergies Allergy/AdvReac Type Severity Reaction Status Date / Time iodine Allergy Unknown BETADINE Verified 09/24/18 18:17 Sulfa (Sulfonamide Allergy Unknown "SULFA Verified 09/24/18 18:17 Antibiotics) DRUGS" Consultations 09/24/18 19:35 ED Decision to Admit Stat 09/24/18 23:05 Consult Cardiology Routine Consult Case Management - Discharge Planning Routine 09/25/18 09:06 Consult Palliative Care Routine 09/25/18 21:02 Consult Case Management - Discharge Planning Routine 09/26/18 08:02 Consult Neurology Routine Ordered Studies 09/24/18 17:48 CT head/brain wo con Stat 09/25/18 19:42 CT head/brain wo con Stat 09/25/18 21:01 MR brain wo/w con Urgent 09/25/18 21:04 US carotid doppler BI Routine 09/29/18 17:11 CT head/brain wo con Stat Hospital Course (1) Acute CVA (cerebrovascular accident): Stroke alert was called in last night (09/25) due to right facial droop and decreased movement of right sided extremities with dysarthria MRI of the brain showed 8 mm acute infarct within the left internal capsule and 5 mm acute infarct within the right external capsule. No mass effect. No hemorrhage. Carotid ultrasound has been negative for any significant obstruction Has been on Coumadin for history of DVT and the INR therapeutic Appreciate neurology input Appreciated palliative care input and recommendation with ongoing follow-up. We will continue current medications for now Like to be transferred to hospice care or comfort care from tomorrow or day after Discussed with the daughter Clinically a lot better today without any significant symptoms of stroke Out of bed on a chair and communicating normally We will continue with PT and OT and possible placement Remains stable in medical floor Has had occupational strokelike symptoms but none for the last 24-48 hours Appreciate palliative care input and recommendation She will be transferred to [facility] this afternoon Depending on her condition she may be transferred to hospice care at [facility] for at home (2) Change in mental status: This is an 87-year-old female with a PMH of HTN, HLD, diastolic heart failure, dementia, recurrent UTI and history of DVT on Coumadin who presents from home with increased drowsiness starting this morning and was found to have decompensated diastolic heart failure. -Became noticably more lethargic in the morning of admission, family denies tayla confusion -CT head with chronic small vessel ischemic change. No acute intracranial abnormality -Lethargy multifactorial-CHF with low saturation, use of too much gabapentin and opioids, any infection has to be ruled out -Chest x-ray reviewed, has possible developing infiltrate -Doxycycline intravenously was started today -Discussed with the family members especially the daughter -Appreciate palliative care input and recommendation -We will continue current treatment with possible placement on discharge -Remains stable and the confusion is improved (3) Acute on chronic diastolic (congestive) heart failure: BLE edema, weight gain over past few weeks -Echo from Mar 2018 with EF: 61%, concentric LVH, no wall motion abnormality of LV, grade 1 diastolic dysfunction, mild AV stenosis -Given 40mg IV Lasix in ED -Low sodium diet, daily weights, strict I&Os -Appreciate cardiology input and recommendation No CHF Denies any shortness of breath Remains stable (4) Elevated troponin: Troponin elevated to 0.069 initially. Repeat pending -No chest pain or h/o IN -EKG without acute ischemic changes -Likely due to demand ischemia in setting of decompensated heart failure -Continue trending troponin, monitor on telemetry -no significant elevation of troponin to qualify ACS -No arrhythmias noted -Has been transferred to medical floor to continue care (5) GERD (gastroesophageal reflux disease): Continue PPI (6) Recurrent UTI: No evidence of infection We will discontinue home nitrofurantoin No evidence of infection now (7) DVT (deep venous thrombosis): H/o IVC filter placement and also history of pulmonary embolism -Continue home dose coumadin of 2mg daily -INR slightly subtherapeutic at 1.8. Continue to monitor -Has been on intravenous heparin and Coumadin -INR is therapeutic -We will continue Coumadin to maintain INR between 2-3 INR is 1.4 today, will give double the dose of Coumadin today (8) Hypertension: Elevated with SBP in 180s -Continue home lisinopril, IV Lasix -Add additional agents if indicated (9) Hyperlipidemia: Continue statin Statin dose has been increased DVT Ppx: Continue coumadin Code status: DNR per discussion with patient, family PCP: Romeo Dispo: Admitted to telemetry. She will be transferred to [facility] this afternoon Discussed in detail with the daughter who is in agreement Appreciate palliative care input and recommendation May need to be transferred to hospice care down the line Total Time Total Time Spent Total Time Spent (In Minutes): 40 minutes Total Time Includes: Examination of the Patient, Discharge Planning, Medication Reconciliation and Communication With Other Providers Discharge Plan Discharge Items Patient Disposition: Transfer [facility] Reason For Visit: CHF Discharge Diagnosis: Acute CVA:8 mm acute infarct within the left internal capsule and 5 mm acute infarct within the right external capsule, diastolic heart failure, hypertension, generalized weakness Condition: Fair Discharge Goals: Decrease discomfort, Improve disease control and Improve function Activity: Resume your previous activity Activity Comment: Needs assistance with ADL S Non-emergency contact: Primary Care Provider Call non-emergency contact if: you have any medication questions and your symptoms worsen Follow-up/Referrals: Rafael Page DO [Medical Accounting Clerk] - (Please make an appointment with the primary care physician in about 1 week) Diet: Heart Healthy Diet Texture: Mechanical soft (ground) Diet Comment: Minced and moist Addtl Provider Instructions: Please take precaution to avoid fall. Continue PT and OT. May need to be transitioned to hospice care down the line if there is no improvement. Prescriptions: New sennosides [Senokot] 8.6 mg Tablet 17.2 mg PO QAM 30 Days Qty: 60 RF: 0 lansoprazole [Prevacid SoluTab] 30 mg Tablet,Disintegrat, Delay Rel 30 mg PO QAM 30 Days Qty: 30 RF: 0 metoprolol tartrate 25 mg Tablet 12.5 mg PO BID 30 Days Qty: 30 RF: 0 hydrocodone-acetaminophen 2.5-325 mg tablet 1 tab PO Q4H PRN (Reason: pain) Qty: 20 RF: 0 Continue multivitamin Tablet 1 tab PO DAILY RF: 0 furosemide 40 mg Tablet 40 mg PO DAILY RF: 0 atorvastatin 20 mg Tablet 20 mg PO HS RF: 0 polyethylene glycol 3350 [Miralax] 17 gram Powder In Packet 17 g PO DAILY RF: 0 hydrocodone-acetaminophen 5-325 mg Tablet 1 tab PO Q4H PRN (Reason: Pain) RF: 0 acetaminophen [Tylenol 8 Hour] 650 mg Tablet Extended Release 650 mg PO Q8H PRN (Reason: Fever) RF: 0 warfarin 2 mg Tablet 2 mg PO DAILY@1600 RF: 0 docusate sodium 100 mg Capsule 100 mg PO DAILY RF: 0 omeprazole 20 mg Capsule,Delayed Release(Dr/Ec) 20 mg PO BID RF: 0 cyclosporine [Restasis] 0.05 % Dropperette 1 drp OPB Q12H RF: 0 calcium carbonate-vitamin D3 [Calcium 500 + D] 500 mg(1,250mg) -200 unit Tablet 1 tab PO DAILY RF: 0 vit C,G-Sa-znvqw-lutein-zeaxan [PreserVision AREDS-2] 394-786-08-1 mg-unit-mg- mg Capsule 1 tab PO DAILY RF: 0 gabapentin 400 mg capsule 400 mg PO TID RF: 0 Changed lisinopril 20 mg Tablet 40 mg PO DAILY Qty: 0 RF: 0 Discontinued nitrofurantoin macrocrystal [Macrodantin] 50 mg Capsule 50 mg PO DAILY RF: 0 Stand-Alone Forms: [facility] Discharge Orders: Discharge Order (Routine); Ordered 10/01/18 Ordered By: Britt Barry Skilled Items Patient informed of condition?: Yes DNR: Yes Discharge Level of Care: Skilled Communicable Disease: No Discharge Prognosis: Stable Admission Data Admit Date/Time: 09/24/18 21:32 Attending Provider: Britt Barry Admit Provider: Rob Ibarra Primary Care Provider: Amadeo Walters Other Providers: Rob Ibarra ; Jovany Pena ; Andrew Reed ; Pj Fox ; Rafael Page ; Wagner Brewer ; Shay Hughes ; Paulette Cueto ; Gricelda Morrell ; Tabitha Estrada ; Gricelda Bailey ; Damian Olson ; Gricelda Lai ; Chanell Del Toro ; Tristan Ortega ; Adriana Schmidt ; Britt Barry ; Mansoor Galeano Service: Medical Other Interventions: Discharge Summary Assessment (RN) Last Done: 10/01/18 12:34 DC Date/Time DO NOT enter until pt leaves facility: 10/01/18 14:45
== END 2018-10-01 14:45 | DRG 291 ==
LOC: ED 17:00 → SUATTDRO 21:32 → 2S 21:32 → 1E 09-25 20:01 → 2S 09-25 20:45 → 4E 09-28 14:55
DX: Z91.81 History of falling; Z88.2 Allergy status to sulfonamides; R29.713 NIHSS score 13; M54.9 Dorsalgia, unspecified; G81.91 Hemiplegia, unspecified affecting right dominant side; I63.89 Other cerebral infarction; R47.81 Slurred speech; Z86.711 Personal history of pulmonary embolism; R47.1 Dysarthria and anarthria; R53.1 Weakness; R47.01 Aphasia; K21.9 Gastro-esophageal reflux disease without esophagitis; I16.0 Hypertensive urgency; G89.29 Other chronic pain; R91.8 Other nonspecific abnormal finding of lung field; I24.8 Other forms of acute ischemic heart disease; R29.810 Facial weakness; Z86.718 Personal history of other venous thrombosis and embolism; Z79.2 Long term (current) use of antibiotics; I50.32 Chronic diastolic (congestive) heart failure; Z88.8 Allergy status to other drugs, medicaments and biological substances; Z79.01 Long term (current) use of anticoagulants; Z79.899 Other long term (current) drug therapy; Z95.828 Presence of other vascular implants and grafts; E78.5 Hyperlipidemia, unspecified; G93.40 Encephalopathy, unspecified; M89.8X8 Other specified disorders of bone, other site; Z87.440 Personal history of urinary (tract) infections; F01.50 Vascular dementia, unspecified severity, without behavioral disturbance, psychotic disturbance, mood disturbance, and anxiety; Z86.73 Personal history of transient ischemic attack (TIA), and cerebral infarction without residual deficits; Z51.81 Encounter for therapeutic drug level monitoring; R73.9 Hyperglycemia, unspecified; Z66 Do not resuscitate; I11.0 Hypertensive heart disease with heart failure